=== PATIENT | female | born 1990 | race African-American/Black ===

== ENCOUNTER 2023-05-07 01:02 | Emergency (ER) | payer SELFPAY ==
--- OUTSIDE RECORDS SUMMARY | 2023-05-07 01:07 | XMS REPORT | Continuity of Care Document ---
:1990 Author Organization [facility] t Address [address] [place] [address] Care Team Providers Name Role Phone Arian Meraz CNM Attending Clinician Unavailable Lela Caro CNM Attending Clinician Unavailable Lela Caro CNM Admitting Clinician Unavailable Arian Meraz CNM Admitting Clinician Unavailable Payers Payer Name Policy Type Policy Number Effective Date Expiration Date S ource Problems This patient has no known problems. Allergies, Adverse Reactions, Alerts Allergy Allergy Status Severity Reaction(s) Onset Inactive Treating Comm ents Source Name Type Date Date Clinician No Known DA Active U 2019-0 [facility] 00:00: e 00 [facility] No Known DA Active U 2019-0 [facility] 00:00: e 00 [facility] No Known DA Active U 2015-0 [facility] 00:00: e 00 [facility] Medications This patient has no known medications. Procedures This patient has no known procedures. Encounters Start End Encounter Admission Attending Care Care Encounter Source Date/Time Date/Time Type Type Clinicians Facility Department ID 2020-01-11 Inpatient [facility] ELOISA [id number] [facility] 03:44:00 34 [facility] 2019-10-20 Inpatient [facility] ELOISA [id number] [facility] 08:07:00 89 [facility] 2022-11-12 2022-11-12 [facility] [id number] [facility] 13:44:00 13:44:00 Arian 48 [facility] 2020-11-05 2020-11-05 Outpatient [facility] [id number] [facility] 14:50:00 14:50:00 Lela 31 [facility] Results Test Description Test Time Test Comments Results Result Comments Source AB HEPATITIS C 2022-11-14 06:12:00 Test Item Value Reference Range Interpretation Comme nts AB HEPATITIS C (test Non Reactive Non Reactive HCV ant ibody alone does not code = HCVAB) differentiate betweenpreviously resolved infect ion and active infection.Equiv ocal and Reactive HCV antibody re sults should befollowed up w ith an HCV RNA test to support the diagnosisof active HCV infe ction.Performed At: [facility] [id number] Jameson Patel MD Ph:[phone] AB HIV 1 06:12:00 Test Item Value Reference Range Interpretation Comments AB HIV 1 2 (test Nonreactive NonReactive It is recog nized that code = [id number]) currently av ailable assays for thed etection of antibodies t o HIV-1 and/or HIV-2 ma y notdetect all i nfected individuals. A negative test result soriano snot exclude the pos sibility of exposure to or infection withH IV. HIV antibodies may be undetectable in some stages ofthe in fection and in some cli nical conditions. AG HEPAT B [id number] 22:14:00 Test Item Value Reference Range Interpretation Comments AG HEPAT B SURF (test code NonReactive Index Nonreactive = HBSAG) COMPREHENSIVE METABOLIC [id number] 21:18:00 Test Item Value Reference Range Interpretation Comments SODIUM (test code = 139 mmol/L 136-145 N NA) POTASSIUM (test 3.6 mmol/L 3.5-5.1 N code = K) CHLORIDE (test code 105.0 mmol/L 98-107 N = CL) CARBON DIOXIDE 23.0 mmol/L 21-32 N (test code = CO2) ANION GAP (test 14.6 10-20 N code = GAP) GLUCOSE (test code 54 mg/dL 74-106 L = GLU) BLOOD UREA NITROGEN 9 mg/dL 7-18 N (test code = BUN) GLOMERULAR > 60 mL/min See_Comment The Glomerular FILTRATION RATE Filtration R ate is a (test code = GFR) calculated parameterbased on serum Creatinin e, patient age and sex. GFR valuesless than 60 mL/min/1.73 squ are meters are imani cative ofChronic Kidne y Disease. Values less than 15 mL/min/1.73squa re meters indicate Kidney failure. The calculation for GFR is based on the CK D-EPI (2020) calculat ion. This formulais race indifferent and is the recommended for ingrid for GFRby the N ational Kidney Foundati on for Adults.The GFR will not calculate i f the sex is unknown or if thepatient's ag e is <18 years. [Aut omated message] The sy stem which generated this result transmit hira reference range : >=60. The reference r ashlee was not used to interpret this result as normal/abnor mal. CREATININE (test 0.70 mg/dL 0.55-1.02 N Note blue ge in code = CREAT) reference rang e due to change in reage nt. BUN/CREATININE 13.4 10-20 N RATIO (test code = BUN/CREA) TOTAL PROTEIN (test 7.4 gram/dL 6.4-8.2 N code = PROT) ALBUMIN (test code 3.8 g/dL 3.4-5.0 N = ALB) GLOBULIN (test code 3.6 gram/dL 2.7-4.2 N = GLOB) ALBUMIN/GLOBULIN 1.1 0.75-1.50 N RATIO (test code = A/G) CALCIUM (test code 8.4 mg/dL 8.5-10.1 L = CA) BILIRUBIN TOTAL 0.70 mg/dL 0.0-1.0 N (test code = BILT) SGOT/AST (test code 12 IUnit/L 15-37 L = AST) SGPT/ALT (test code 9 IUnit/L 12-78 L = ALT) ALKALINE 54 IUnit/L 45-117 N Note change i n PHOSPHATASE TOTAL reference range due to (test code = ALKP) change in reagent. AB [id number] 21:16:00 Test Item Value Reference Range Interpretation Comments AB TREPONEMA (test code = Negative Index NonReactive TREPAB) THYROID STIMULATING [id number] 21:02:00 Test Item Value Reference Range Interpretation Comments THYROID STIMULATING 1.860 uIU/mL 0.36-3.74 N TSH REFE RENCE HORMONE (test code = RANGES: EUTHYROID: TSH) 0.35 - 4.3 mIU/ mL HYPO : > 5.5 mI U/mL HYPER : < 0.35 mIU/mL [id number] 20:41:00 Test Item Value Reference Range Interpretation Comments GLYCOSYLATED HEMOGLOBIN 4.7 % HbA1 AZAR PIERRE DIAGNOSIS: (HA1C) (test code = HbA1C GLYHGB) (%) ----- ----- Diab etic >6.4Prediabetes 5.7 - 6.4Normal <5. 7 ESTIMATED AVERAGE 88 MG/DL GLUCOSE (test code = EAG) CBC W/AUTO [id number] 20:14:00 Test Item Value Reference Range Interpretation Comments WHITE BLOOD CELL (test code = 4.9 K/mm3 4.5-12.5 N WBC) RED BLOOD CELL (test code = 4.63 mill/mm3 3.7-5.2 N RBC) HEMOGLOBIN (test code = HGB) 12.8 gram/dL 11.5-15.5 N HEMATOCRIT (test code = HCT) 39.9 % 36.0-46.0 N MEAN CELL VOLUME (test code = 86.2 fL 80-98 N MCV) MEAN CELL HGB (test code = MCH) 27.6 picogram 27.0-33.0 N MEAN CELL HGB CONCETRATION 32.1 gram/dL 33.0-36.0 L (test code = MCHC) RED CELL DISTRIBUTION WIDTH 13.2 % 11.6-16.2 N (test code = RDW) RED CELL DISTRIBUTION WIDTH SD 41.0 fL 37.0-51.0 N (test code = RDW-SD) PLATELET COUNT (test code = 328 K/mm3 150-450 N PLT) MEAN PLATELET VOLUME (test code 9.8 fL 6.7-11.0 N = MPV) NEUTROPHIL % (test code = NT%) 51.9 % 39.0-69.0 N IMMATURE GRANULOCYTE % (test 0.2 % 0.0-5.0 N code = IG%) LYMPHOCYTE % (test code = LY%) 37.0 % 25.0-55.0 N MONOCYTE % (test code = MO%) 6.7 % 0.0-10.0 N EOSINOPHIL % (test code = EO%) 3.6 % 0.0-5.0 N BASOPHIL % (test code = BA%) 0.6 % 0.0-1.0 N NUCLEATED RBC % (test code = 0.0 % 0-0 N NRBC%) NEUTROPHIL # (test code = NT#) 2.56 K/mm3 1.8-7.7 N IMMATURE GRANULOCYTE # (test 0.01 x10 3/uL 0-0.03 N code = IG#) LYMPHOCYTE # (test code = LY#) 1.83 K/mm3 1.0-5.0 N MONOCYTE # (test code = MO#) 0.33 K/mm3 0-0.8 N EOSINOPHIL # (test code = EO#) 0.18 K/mm3 0.0-0.5 N BASOPHIL # (test code = BA#) 0.03 K/mm3 0.0-0.2 N NUCLEATED RBC # (test code = 0.00 K/mm3 0.0-0.1 N NRBC#) MANUAL DIFF REQUIRED (test code NO = MDIFF) PAP [id number] 15:07:00 Test Item Value Reference Range Interpretation Comments PAP SMEAR-CUSTOMER SERVICES MANAGER (test code = REPORT FAX SMEAR PAPSMEAR) SPECIMEN COMMENTS: AGE:30 PAP W/CT/NG/TV RFX TO HR HPV ASCCOMMENTS TO FORM SETTER/DRIVER: LCI TEST CODE:[id number] HEPATITIS [id number] 05:10:00 Test Item Value Reference Range Interpretation Comments AB HEPATITIS C (test <0.1 0.0-0.9 INFCE R esult Units: s/co code = HCVAB) ratio Negative : < 0.8 Indeterminate: 0.8 - 0.9 Positive: > 0.9 The CDC recommends that a positive HCV antibody re sult be followed up wit h a HCV Nucleic Acid Am plification test (250479).P erformed At: [facility] [address] [place], [place] [id number] Jameson Patel MD Ph:[phone] AG HEPAT B [id number] 23:25:00 Test Item Value Reference Range Interpretation Comments AG HEPAT B SURF (test code Nonreactive Index Nonreactive = HBSAG) HIV 1 2 COMBO AG/AB [id number] 23:25:00 Test Item Value Reference Range Interpretation Comments HIV 1 2 COMBO AB/AG NON NONREACTIVE NONREACTIVE H IV P24 AG/AB SCREEN REACTIVE ANTIGEN NONREAC TIVE (test code = NONREACTIVE HIV 1&2 [id number]) ANTIBODY NONREA CTIVE THE HIV-1 P24 T EST HELPS DISTINGUI SH ACUTE HIV-1INFECTIONF ROM ESTABLISHED HIV -1 INFECTION WHEN THE SPECIMEN ISPOSI TIVE FOR HIV-1 P24 A NTIGEN. HIV-1 P24 ANTIG EN IS HIGHEST IN THE FIRST FEW WEEKS AFTERINFECTION AG HEPAT B [id number] 23:23:00 Test Item Value Reference Range Interpretation Comments AG HEPAT B SURF (test code Nonreactive Index Nonreactive = HBSAG) HIV 1 2 COMBO AG/AB [id number] 23:23:00 Test Item Value Reference Range Interpretation Comments HIV 1 2 COMBO AG/AB SCREEN (test code = NONREACTIVE [id number]) AB [id number] 22:14:00 Test Item Value Reference Range Interpretation Comments AB TREPONEMA (test code = Nonreactive Index NonReactive TREPAB) URINALYSIS [id number] 07:27:00 Test Item Value Reference Range Interpretation Comments UA COLOR (test code = COLU) Light-Yellow YELLOW UA APPEARANCE (test code = CLEAR CLEAR APPU) UA GLUCOSE DIPSTICK (test NEGATIVE mg/dL NEGATIVE code = DGLUU) UA BILIRUBIN DIPSTICK (test NEGATIVE mg/dL NEGATIVE code = BILU) UA KETONE DIPSTICK (test code NEGATIVE mg/dL NEGATIVE = KETU) UA SPECIFIC GRAVITY (test 1.013 1.001-1.035 code = SGU) UA BLOOD DIPSTICK (test code Negative mg/dL NEGATIVE = ALY) UA PH DIPSTICK (test code = 8.0 5.0-8.0 BRENNAN) UA PROTEIN DIPSTICK (test NEGATIVE mg/dL NEGATIVE code = PROU) UA UROBILINIOGEN DIPSTICK Normal mg/dL NEGATIVE (test code = URO) UA NITRITE DIPSTICK (test NEGATIVE NEGATIVE code = AMINTA) UA LEUKOCYTE ESTERASE W NEGATIVE Ian/uL NEGATIVE REFLEX (test code = LEUUR) UA WBC (test code = WBCU) per HPF 0-5 UA RBC (test code = RBCU) per HPF 0-5 UA EPITHELIAL CELLS (test per HPF Few code = EPIU) UA BACTERIA (test code = per HPF NONE BACU) Urine Source? Clean CatchURINALYSIS [id number] 07:27:00 Test Item Value Reference Range Interpretation Comments UA COLOR (test code = COLU) Light-Yellow YELLOW UA APPEARANCE (test code = CLEAR CLEAR APPU) UA GLUCOSE DIPSTICK (test NEGATIVE mg/dL NEGATIVE code = DGLUU) UA BILIRUBIN DIPSTICK (test NEGATIVE mg/dL NEGATIVE code = BILU) UA KETONE DIPSTICK (test code NEGATIVE mg/dL NEGATIVE = KETU) UA SPECIFIC GRAVITY (test 1.013 1.001-1.035 code = SGU) UA BLOOD DIPSTICK (test code Negative mg/dL NEGATIVE = ALY) UA PH DIPSTICK (test code = 8.0 5.0-8.0 BRENNAN) UA PROTEIN DIPSTICK (test NEGATIVE mg/dL NEGATIVE code = PROU) UA UROBILINIOGEN DIPSTICK Normal mg/dL NEGATIVE (test code = URO) UA NITRITE DIPSTICK (test NEGATIVE NEGATIVE code = AMINTA) UA LEUKOCYTE ESTERASE W NEGATIVE Ian/uL NEGATIVE REFLEX (test code = LEUUR) UA WBC (test code = WBCU) 0-5 per HPF 0-5 UA RBC (test code = RBCU) 0-2 #/HPF 0-5 UA EPITHELIAL CELLS (test FEW per HPF FEW code = EPIU) UA BACTERIA (test code = NONE SEEN #/HPF NONE BACU) Urine Source? Clean CatchCBC W/O [id number] 06:45:00 Test Item Value Reference Range Interpretation Comments WHITE BLOOD CELL (test code = 5.9 K/mm3 4.5-12.5 N WBC) RED BLOOD CELL (test code = 4.53 mill/mm3 3.7-5.2 N RBC) HEMOGLOBIN (test code = HGB) 12.4 gram/dL 11.5-15.5 N HEMATOCRIT (test code = HCT) 38.2 % 36.0-46.0 N MEAN CELL VOLUME (test code = 84.3 fL 80-98 N MCV) MEAN CELL HGB (test code = MCH) 27.4 picogram 27.0-33.0 N MEAN CELL HGB CONCETRATION 32.5 gram/dL 33.0-36.0 L (test code = MCHC) RED CELL DISTRIBUTION WIDTH 13.2 % 11.6-16.2 N (test code = RDW) PLATELET COUNT (test code = 239 K/mm3 150-450 N PLT) MEAN PLATELET VOLUME (test code 10.4 fL 6.7-11.0 N = MPV) - CT ABD PELVIS [id number] 05:57:00 Name: ARACELI CARO [facility] : 1990 Age/S: 29 / F [address] [facility] Unit #: [id number] Loc: [place] [address] Phys: Iván Doherty DO Acct: [id number] Dis Date: Status: REG ER PHONE #: [phone] Exam Date: 01/11/2020 0540 FAX #: [phone] Reason: RLQ/LLQ pain EXAMS: CPT CODE: [id number] CT ABD PELVIS W/CONT 44884 EXAM: - CT ABD PELVIS W/CONT HISTORY: Abdominal pain. TECHNIQUE: Axial tomograms through the abdomen and pelvis were obtained after intravenous contrast. Coronal and sagittal reformatted images are provided. This exam was performed according to our departmental dose-optimization program, which includes automated exposure control, adjustment of the mA and/or kV according to patient size and/or use of iterative reconstruction technique. COMPARISON: None available time of interpretation. FINDINGS: The visualized lung bases are clear. The liver, spleen, pancreas,adrenal glands and kidneys demonstrate no significant abnormalities. The appendix has a normal appearance. The bowel is unremarkable. There is no adenopathy or fluid collection. No acute osseous abnormality. IMPRESSION: No significant abnormalities demonstrated. at 0557 Reported and signed by: Alfa Castro MD CC: Iván Doherty DO; Lela Caro Technologist:CHRIS ORTEGA CTDI: DLP: Trnscb Date/Time: 01/11/2020 (0557) [email or web address] Orig Print D/T: S: 01/11/2020 (0600) PAGE 1 Signed Report- DUP AB/PEL/SC [id number] 05:55:00 Name: ARACELI CARO [facility] : 1990 Age/S: 29 / F [address] Unit #: [id number] Loc: [place] [address] Phys: Iván Doherty DO Acct: [id number] Dis Date: Status: REG ER PHONE #: [phone] Exam Date: 01/11/2020514 FAX #: [phone] Reason: RLQ/LLQ pain EXAMS: CPT CODE: [id number] DUP AB/PEL/SC COMP 88898 EXAM: - US TRANSVAGINAL NON OB, - US PELVIS LTD OR FU, - DUP AB/PEL/SC COMP HISTORY: Pain. COMPARISON: None TECHNIQUE: Transabdominal and endovaginal scans were performed. Spectral Doppler and color Doppler sonographic analysis of the adnexa was performed. FINDINGS: The uterus is normal size, measuring 8.8 x 5 x 4.4cm (length x AP x transverse dimensions). Endometrial stripe is measuring 12 mm in AP thickness. No myometrial masses are seen. There is no evidence of intrauterine . The right ovary measures 3.2 x 1.5 x 2.6cm. The left ovary measures 3.9 x 2.4 x 3.2cm. Bilateral ovarian blood flow is documented by pulse wave Doppler. There is minimal free fluid in the cul-de-sac. IMPRESSION: Unremarkable pelvic ultrasound. Left ovary is minimally larger in size compared to right ovary. No significant cystic lesions are noted. Electronically Signedby Alfa Castro MD on 01/11/2020 at 0555 Reported and signed by: Alfa Castro MD CC: Iván Doherty DO; Lela Caro Technologist: ARACELI COLIN RT(R),RDMS Trnscb Date/Time: 01/11/2020 (554) [email or web address] Orig Print D/T: S: 01/11/2020 (4857) Probe: PAGE 1 Signed Report- US PELVIS LTD OR [id number] 05:55:00 Name: ARACELI CARO [facility] : 1990 Age/S: 29 / F [address] [facility] Unit #: [id number] Loc: [place], [place] [address] Phys: Iván Doherty DO Acct: [id number] Dis Date: Status: REG ER KOLBY NE #: [phone] Exam Date: 01/11/2020514 FAX #: [phone] Reason: RLQ/LLQ pain EXAMS: CPT CODE: [id number] [place] [address] EXAM: - US TRANSVAGINAL NON OB, - US PELVIS LTD OR FU, - DUP AB/PEL/SC COMP HISTORY: Pain. COMPARISON: None TECHNIQUE: Transabdominal and endovaginal scans were performed. Spectral Doppler and color Doppler sonographic analysis of the adnexa was performed. FINDINGS: The uterus is normal size, measuring 8.8 x 5 x 4.4cm (length x AP x transverse dimensions). Endometrial stripe is measuring 12 mm in AP thickness. No myometrial masses are seen. There is no evidenceof intrauterine . The right ovary measures 3.2 x 1.5 x 2.6cm. The left ovary measures 3.9 x2.4 x 3.2cm. Bilateral ovarian blood flow is documented by pulse wave Doppler. There is minimal freefluid in the cul-de-sac. IMPRESSION: Unremarkable pelvic ultrasound. Left ovary is minimally largerin size compared to right ovary. No significant cystic lesions are noted. at 0555 Reported and signed by: Alfa Castro MD CC: Song Doherty DO; Lela Caro Technologist: ARACELI COLIN RT(R),RDMS Trnscb Date/Time: 01/11/2020 (554) [email or web address] Orig Print D/T: S: 01/11/2020 (0522) Probe: PAGE 1 Signed Report- US TRANSVAGINAL NON [id number] 05:55:00 Name: ARACELI CARO [facility] : 1990 Age/S: 29 / F [address] Unit #: [id number] Loc: [place] [address] Phys: Iván Doherty DO Acct: [id number] Dis Date: Status: REG ER PH ONE #: [phone] Exam Date: 01/11/2020536 FAX #: [phone] Reason: RLQ/LLQ pain EXAMS: CPT CODE: [id number] [place] [address] EXAM: - US TRANSVAGINAL NON OB, - US PELVIS LTD OR FU, - DUP AB/PEL/SC COMP HISTORY: Pain. COMPARISON: None TECHNIQUE: Transabdominal and endovaginal scanswere performed. Spectral Doppler and color Doppler sonographic analysis of the adnexa was performed.FINDINGS: The uterus is normal size, measuring 8.8 x 5 x 4.4cm (length x AP x transverse dimensions). Endometrial stripe is measuring 12 mm in AP thickness. No myometrial masses are seen. There is no evidence of intrauterine . The right ovary measures 3.2 x 1.5 x 2.6cm. The left ovary measures 3.9 x 2.4 x 3.2cm. Bilateral ovarian blood flow is documented by pulse wave Doppler. There is minimal free fluid in the cul-de-sac. IMPRESSION: Unremarkable pelvic ultrasound. Left ovary is minimally larger in size compared to right ovary. No significant cystic lesions are noted. at 0555 Reported and signed by: Alfa Castro MD CC: Iván Doherty DO; Lela Caro Technologist: ARACELI COLIN RT(R),RDMS Trnnhb Date/Time: 01/11/2020(05) [email or web address] Orig Print D/T: S: 01/11/2020 (0558) Probe: [id number] PAGE 1 Signed ReportBASIC METABOLIC [id number] 05:30:00 Test Item Value Reference Range Interpretation Comments SODIUM (test code = 140 mmol/L 136-145 N NA) POTASSIUM (test code 3.7 mmol/L 3.5-5.1 N = K) CHLORIDE (test code = 106.0 mmol/L 98-107 N CL) CARBON DIOXIDE (test 27.0 mmol/L 21-32 N code = CO2) ANION GAP (test code 10.7 10-20 N = GAP) GLUCOSE (test code = 82 mg/dL 74-106 N GLU) BLOOD UREA NITROGEN 16 mg/dL 7-18 N (test code = BUN) GLOMERULAR FILTRATION > 60 mL/min >=60 Estima hira GFR by RATE (test code = using Kimberlee fied MDRD GFR) formula.Chronic kidney disease is defined as ei er kidney damageor GFR <60 mL/min/1.73 m2 for >3 months. CREATININE (test code 0.70 mg/dL 0.55-1.02 N Note change in = CREAT) reference range due to change in reagent. BUN/CREATININE RATIO 22.9 10-20 H (test code = BUN/CREA) CALCIUM (test code = 9.1 mg/dL 8.5-10.1 N CA) HEPATIC FUNCTION [id number] 05:30:00 Test Item Value Reference Range Interpretation Comments TOTAL PROTEIN (test 8.2 gram/dL 6.4-8.2 N code = PROT) ALBUMIN (test code = 3.8 g/dL 3.4-5.0 N ALB) GLOBULIN (test code = 4.4 gram/dL 2.7-4.2 H GLOB) ALBUMIN/GLOBULIN RATIO 0.9 0.75-1.50 N (test code = A/G) BILIRUBIN TOTAL (test 0.20 mg/dL 0.0-1.0 N code = BILT) BILIRUBIN DIRECT (test 0.06 mg/dL 0.0-0.20 N code = BILD) SGOT/AST (test code = 11 IUnit/L 15-37 L AST) SGPT/ALT (test code = 19 IUnit/L 12-78 N ALT) ALKALINE PHOSPHATASE 50 IUnit/L 45-117 N Note change in TOTAL (test code = reference range due ALKP) to change in reagent. [id number] 05:30:00 Test Item Value Reference Range Interpretation Comments LIPASE (test code = LIP) 125 U/L 73.0-393.0 N HCG SERUM [id number] 05:30:00 Test Item Value Reference Range Interpretation Comments HCG SERUM QUAL (test NEGATIVE NEGATIVE This HC GQL test is NOT code = HCGQL) applicable for MALE patients.Check with nurse about probable order error.If Tumor Marker Test needed, nu rse should order test "HCG TU"(Test #[id number])---- - BASIC METABOLIC [id number] 05:29:00 Test Item Value Reference Range Interpretation Comments SODIUM (test code = 140 mmol/L 136-145 N NA) POTASSIUM (test code 3.7 mmol/L 3.5-5.1 N = K) CHLORIDE (test code = 106.0 mmol/L 98-107 N CL) CARBON DIOXIDE (test 27.0 mmol/L 21-32 N code = CO2) ANION GAP (test code 10.7 10-20 N = GAP) GLUCOSE (test code = 82 mg/dL 74-106 N GLU) BLOOD UREA NITROGEN 16 mg/dL 7-18 N (test code = BUN) GLOMERULAR FILTRATION > 60 mL/min >=60 Estima hira GFR by RATE (test code = using Kimberlee fied MDRD GFR) formula.Chronic kidney disease is defined as [facility] er kidney damageor GFR <60 mL/min/1.73 m2 for >3 months. CREATININE (test code 0.70 mg/dL 0.55-1.02 N Note change in = CREAT) reference range due to change in reagent. BUN/CREATININE RATIO 22.9 10-20 H (test code = BUN/CREA) CALCIUM (test code = 9.1 mg/dL 8.5-10.1 N CA) HEPATIC FUNCTION [id number] 05:29:00 Test Item Value Reference Range Interpretation Comments TOTAL PROTEIN (test 8.2 gram/dL 6.4-8.2 N code = PROT) ALBUMIN (test code = 3.8 g/dL 3.4-5.0 N ALB) GLOBULIN (test code = 4.4 gram/dL 2.7-4.2 H GLOB) ALBUMIN/GLOBULIN RATIO 0.9 0.75-1.50 N (test code = A/G) BILIRUBIN TOTAL (test 0.20 mg/dL 0.0-1.0 N code = BILT) BILIRUBIN DIRECT (test 0.06 mg/dL 0.0-0.20 N code = BILD) SGOT/AST (test code = 11 IUnit/L 15-37 L AST) SGPT/ALT (test code = 19 IUnit/L 12-78 N ALT) ALKALINE PHOSPHATASE 50 IUnit/L 45-117 N Note change in TOTAL (test code = reference range due ALKP) to change in reagent. [id number] 05:29:00 Test Item Value Reference Range Interpretation Comments LIPASE (test code = LIP) 125 U/L 73.0-393.0 N HCG SERUM [id number] 05:29:00 Test Item Value Reference Range Interpretation Comments HCG SERUM QUAL (test code = HCGQL) NEGATIVE BASIC METABOLIC [id number] 05:17:00 Test Item Value Reference Range Interpretation Comments SODIUM (test code = NA) 140 mmol/L 136-145 N POTASSIUM (test code = K) 3.7 mmol/L 3.5-5.1 N CHLORIDE (test code = CL) 106.0 mmol/L 98-107 N CARBON DIOXIDE (test code = CO2) mmol/L 21-32 ANION GAP (test code = GAP) 10-20 GLUCOSE (test code = GLU) mg/dL 74-106 BLOOD UREA NITROGEN (test code = mg/dL 7-18 BUN) GLOMERULAR FILTRATION RATE (test mL/min >=60 code = GFR) CREATININE (test code = CREAT) mg/dL 0.55-1.02 BUN/CREATININE RATIO (test code 10-20 = BUN/CREA) CALCIUM (test code = CA) mg/dL 8.5-10.1 HEPATIC FUNCTION [id number] 05:17:00 Test Item Value Reference Range Interpretation Comments TOTAL PROTEIN (test code = PROT) gram/dL 6.4-8.2 ALBUMIN (test code = ALB) g/dL 3.4-5.0 GLOBULIN (test code = GLOB) gram/dL 2.7-4.2 ALBUMIN/GLOBULIN RATIO (test code = 0.75-1.50 A/G) BILIRUBIN TOTAL (test code = BILT) mg/dL 0.0-1.0 BILIRUBIN DIRECT (test code = BILD) mg/dL 0.0-0.20 SGOT/AST (test code = AST) IUnit/L 15-37 SGPT/ALT (test code = ALT) IUnit/L 12-78 ALKALINE PHOSPHATASE TOTAL (test IUnit/L 45-117 code = ALKP) [id number] 05:17:00 Test Item Value Reference Range Interpretation Comments LIPASE (test code = LIP) U/L 73.0-393.0 HCG SERUM [id number] 05:17:00 Test Item Value Reference Range Interpretation Comments HCG SERUM QUAL (test code = HCGQL) NEGATIVE [id number] 02:37:00 Test Item Value Reference Range Interpretation Comments TROPONIN-I (test code = TROPI) <0.015 ng/mL 0-0.045 N COMMENTS TO FORM SETTER/DRIVER: COLLECT 3 HOURS AFTER PREVIOUS SAMPLETROPONIN-I 2019-10-20 18:55:00 Test Item Value Reference Range Interpretation Comments TROPONIN-I (test code = TROPI) <0.015 ng/mL 0-0.045 N COMMENTS TO FORM SETTER/DRIVER: COLLECT 3 HOURS AFTER PREVIOUS SAMPLETHYROID PROFILE [id number] 15:27:00 Test Item Value Reference Range Interpretation Comments T3 UPTAKE (test code = 34.0 % 30.0-40.0 N T3UP) T4 (THYROXINE) (test 11.0 ug/dL 4.5-13.9 N code = T4) T7 (FREE THYROXINE 3.74 FTI 1.3-5.1 N INDEX) (test code = T7) THYROID STIMULATING 1.940 uIU/mL 0.36-3.74 N TSH REFE RENCE HORMONE (test code = RANGES: EUTHYROID: TSH) 0.35 - 4.3 mIU/ mL HYPO : > 5.5 mI U/mL HYPER : < 0.35 mIU/mL [id number] 13:44:00 Test Item Value Reference Range Interpretation Comments GLYCOSYLATED HEMOGLOBIN 5.2 % HbA1 SUGG ESTED DIAGNOSIS: (HA1C) (test code = HbA1C GLYHGB) (%) ----- ----- Diab etic >6.4Prediabetes 5.7 - 6.4Normal <5. 7 ESTIMATED AVERAGE 103 MG/DL GLUCOSE (test code = EAG) THYROID STIMULATING [id number] 09:59:00 Test Item Value Reference Range Interpretation Comments THYROID STIMULATING 2.080 uIU/mL 0.36-3.74 N TSH REFE RENCE HORMONE (test code = RANGES: EUTHYROID: TSH) 0.35 - 4.3 mIU/ mL HYPO : > 5.5 mI U/mL HYPER : < 0.35 mIU/mL BASIC METABOLIC [id number] 09:52:00 Test Item Value Reference Range Interpretation Comments SODIUM (test code = 143 mmol/L 136-145 N NA) POTASSIUM (test code 3.5 mmol/L 3.5-5.1 N = K) CHLORIDE (test code = 109.0 mmol/L 98-107 H CL) CARBON DIOXIDE (test 27.0 mmol/L 21-32 N code = CO2) ANION GAP (test code 10.5 10-20 N = GAP) GLUCOSE (test code = 88 mg/dL 74-106 N GLU) BLOOD UREA NITROGEN 14 mg/dL 7-18 N (test code = BUN) GLOMERULAR FILTRATION > 60 mL/min >=60 Estima hira GFR by RATE (test code = using Kimberlee fied MDRD GFR) formula.Chronic kidney disease is defined as [facility] er kidney damageor GFR <60 mL/min/1.73 m2 for >3 months. CREATININE (test code 0.90 mg/dL 0.55-1.02 N Note change in = CREAT) reference range due to change in reagent. BUN/CREATININE RATIO 15.6 10-20 N (test code = BUN/CREA) CALCIUM (test code = 9.2 mg/dL 8.5-10.1 N CA) [id number] 09:52:00 Test Item Value Reference Range Interpretation Comments TROPONIN-I (test code = TROPI) <0.015 ng/mL 0-0.045 N [id number] 09:48:00 Test Item Value Reference Range Interpretation Comments D-DIMER (test 217.00 ng/mLFEU 0-500 N Clinical Cu t-off value code = DDIMER) for D-Dimer i s 500 ng/mL FEU. Comment: T he [employer] D-Dim er assay is intended for use asan aid in the diag nosis of venous thromboe mbolism (VTE)[deep vein thrombosis (DVT ) or pulmonary embol ism (PE)].The measu rement of D-Dimer should not be used as an aid inthe diagnosis of VT E, in patient with: -Therapeutic do se anticoagulant t herapy for >24 hours -Fibr inolytic therapy within previous 7 days -Trauma or surgery within previous 4 weeks -Disseminated malignancies -A ortic aneurysm -Sepsi s, severe infections, pne umonia, severe skin inf ections -Liver cirrhosi s - [id number] 09:48:00 Test Item Value Reference Range Interpretation Comments PHOSPHORUS (test code = PHOS) 2.2 mg/dL 2.5-4.9 L [id number] 09:48:00 Test Item Value Reference Range Interpretation Comments MAGNESIUM (test code = MAG) 1.9 mg/dL 1.8-2.4 N BASIC METABOLIC [id number] 09:43:00 Test Item Value Reference Range Interpretation Comments SODIUM (test code = NA) 143 mmol/L 136-145 N POTASSIUM (test code = K) 3.5 mmol/L 3.5-5.1 N CHLORIDE (test code = CL) 109.0 mmol/L 98-107 H CARBON DIOXIDE (test code = CO2) mmol/L 21-32 ANION GAP (test code = GAP) 10-20 GLUCOSE (test code = GLU) mg/dL 74-106 BLOOD UREA NITROGEN (test code = mg/dL 7-18 BUN) GLOMERULAR FILTRATION RATE (test mL/min >=60 code = GFR) CREATININE (test code = CREAT) mg/dL 0.55-1.02 BUN/CREATININE RATIO (test code 10-20 = BUN/CREA) CALCIUM (test code = CA) mg/dL 8.5-10.1 [id number] 09:43:00 Test Item Value Reference Range Interpretation Comments TROPONIN-I (test code = TROPI) ng/mL 0-0.045 [id number] 09:43:00 Test Item Value Reference Range Interpretation Comments PHOSPHORUS (test code = PHOS) mg/dL 2.5-4.9 [id number] 09:43:00 Test Item Value Reference Range Interpretation Comments MAGNESIUM (test code = MAG) 1.9 mg/dL 1.8-2.4 N - XR CHEST 1 [id number] 09:41:00 FAX: Loni Page DO Emily: B St: REG FAX: Y Lela Caro Name: ARACELI CARO [facility] : 1990 Age/S: 29/F [address] [facility] Unit #: [id number] Loc: [place] [address] Phys: Loni Page DO Acct: [id number] Dis Date: Status: REG ER PHONE #: [phone] Exam Date: 10/20/2019 0929FAX #: [phone] Reason: Abdominal Pain EXAMS: CPT CODE: [id number] XR CHEST 1 V 90301 HISTORY: Abdominal pain. COMPARISON: None available. Location: [facility]. No acute infiltrates, effusion or congestion is noted. The cardiac and mediastinal silhouette are within normal limits. IMPRESSION: No acute infiltrates, effusion or congestion. at 0941 Reported and signed by: Zuhair Jc M.D. CC: Loni Page DO; Lela Caro Technologist: BHAVANI ARELLANO JR Trnscrd Date/Time/By: 10/20/2019 (0941) : By: [email or web address] Orig Print D/T: S: 10/20/2019 (2197) PAGE 1 Signed Report PROTHROMBIN [id number] 09:33:00 Test Item Value Reference Range Interpretation Comments PROTHROMBIN TIME 13.1 seconds 9.0-14.0 N PATIENT (test code = PTP) INTERNATIONAL NORMAL 1.1 0.8-1.2 N The the rapeutic range RATIO (test code = for oral INR) anticoagulant t herapy formost indicat ions is an internati onal normalized rati o (INR)of between 2.0 and 3.0. The recommended therapeutic INR range for various cli nical situations is l isted below: Clinical Situat ion INR range Pulmonary embol ism treatment (2.0-3.0)Venous thrombosis treatmentVenous thrombosis prophylaxis (hi gh risk surgery)Prevent ion of systemic emboli sm from: Acute myocardial infa rction Valvular heart disease Atrial fibrillation Mechanical pros thetic heart valves (2.5-3.5) IS PATIENT ON ANTICOAGULANTS? NTHROMBOPLASTIN TIME [id number] 09:33:00 Test Item Value Reference Range Interpretation Comments THROMBOPLASTIN TIME PARTIAL 35.9 seconds 25.0-36.5 N (test code = PTT) IS PATIENT ON ANTICOAGULANTS? NCBC W/O [id number] 09:22:00 Test Item Value Reference Range Interpretation Comments WHITE BLOOD CELL (test code = 3.1 K/mm3 4.5-12.5 L WBC) RED BLOOD CELL (test code = 5.57 mill/mm3 3.7-5.2 H RBC) HEMOGLOBIN (test code = HGB) 15.5 gram/dL 11.5-15.5 N HEMATOCRIT (test code = HCT) 47.1 % 36.0-46.0 H MEAN CELL VOLUME (test code = 84.6 fL 80-98 N MCV) MEAN CELL HGB (test code = MCH) 27.8 picogram 27.0-33.0 N MEAN CELL HGB CONCETRATION 32.9 gram/dL 33.0-36.0 L (test code = MCHC) RED CELL DISTRIBUTION WIDTH 13.1 % 11.6-16.2 N (test code = RDW) PLATELET COUNT (test code = 249 K/mm3 150-450 N PLT) MEAN PLATELET VOLUME (test code 9.8 fL 6.7-11.0 N = MPV) PAP [id number] 09:27:00 Test Item Value Reference Range Interpretation Comments PAP SMEAR-CUSTOMER SERVICES MANAGER (test code = REPORT FAX SMEAR PAPSMEAR) SPECIMEN COMMENTS: AGE:[address]/NG/TV RFX TO HR HPV ASCUCOMMENTS TO FORM SETTER/DRIVER: LCI TEST CODE:[id number] HEPATITIS [id number] 08:10:00 Test Item Value Reference Range Interpretation Comments AB HEPATITIS C (test 0.1 0.0-0.9 INFCE R esult Units: s/co code = HCVAB) ratio Negative : < 0.8 Indeterminate: 0.8 - 0.9 Positive: > 0.9 The CDC recommends that a positive HCV antibody re sult be followed up wit h a HCV Nucleic Acid Am plification test ([id number]).P erformed At: [facility] [id number] [place], [place] [address]Thuod Jameson Patel MD Ph:[phone] AG HEPAT B [id number] 23:27:00 Test Item Value Reference Range Interpretation Comments AG HEPAT B SURF (test code Nonreactive Index Nonreactive = HBSAG) HIV 1 2 COMBO AG/AB [id number] 23:27:00 Test Item Value Reference Range Interpretation Comments HIV 1 2 COMBO AB/AG NON NONREACTIVE NONREACTIVE H IV P24 AG/AB SCREEN REACTIVE ANTIGEN NONREAC TIVE (test code = NONREACTIVE HIV 1&2 [id number]) ANTIBODY NONREA CTIVE THE HIV-1 P24 T EST HELPS DISTINGUI SH ACUTE HIV-1INFECTIONF ROM ESTABLISHED HIV -1 INFECTION WHEN THE SPECIMEN ISPOSI TIVE FOR HIV-1 P24 A NTIGEN. HIV-1 P24 ANTIG EN IS HIGHEST IN THE FIRST FEW WEEKS AFTERINFECTION AG HEPAT B [id number] 22:53:00 Test Item Value Reference Range Interpretation Comments AG HEPAT B SURF (test code Nonreactive Index Nonreactive = HBSAG) HIV 1 2 COMBO AG/AB [id number] 22:53:00 Test Item Value Reference Range Interpretation Comments HIV 1 2 COMBO AG/AB SCREEN (test code = NONREACTIVE [id number]) AB [id number] 20:59:00 Test Item Value Reference Range Interpretation Comments AB TREPONEMA (test code = Nonreactive Index NonReactive TREPAB) [id number] 20:25:00 Test Item Value Reference Range Interpretation Comments GLYCOSYLATED HEMOGLOBIN 5.3 % HbA1 SUGG ESTED DIAGNOSIS: (HA1C) (test code = HbA1C GLYHGB) (%) ----- ----- Diab etic >6.4Prediabetes 5.7 - 6.4Normal <5. 7 ESTIMATED AVERAGE 105 MG/DL GLUCOSE (test code = EAG) Notes Date/Time Note Provider Source 2020-01-11 04:47:00-00:00 [facility] ([facility]) EMERGENCY PROVIDER REPORT REPORT#:[id number] REPORT STATUS: Signed DATE:01/11/20 TIME: 446 PATIENT: ARACELI CARO UNIT #: [id number] ROOM/BED: AGE: 29 SEX: F PCP PHYS: Lela Caro CN SERVICE AUTHOR: Iván Doherty DO * ALL edits or amendments must be made on the Interneer/computer document * HPI-Abd Pain F Under 40 General Confirmed Patient Yes Initial Greet Date/Time 01/11/20 0401 Presentation Chief Complaint Abdominal pain Hx Obtained From Patient Sudden in Onset? No Onset Occurred Days ago Symptom Duration Since onset Progression since Onset Unchanged Caused by No trauma by history Location RLQ, LLQ Quality Painful Radiation Back. Migration/Movement None Severity: Onset Moderate Severity: Current Mild Associated with Denies: Anorexia, Back pain, Chest pain, Chills, Constipation, Diarrhea, Dysuria , Fever, Hematemesis, Hematochezia, Hematuria, M melina, Nausea, Shortness of breath, Urinary frequency, Urinary retention, Ur inary tract symptoms, Vaginal bleeding, Vaginal discharge, Vomiting. Exacerbated by Palpation Relieved by Nothing Free Text HPI Notes Free Text HPI Notes The patient is a 29-year-old female chief complaint of right lower quadrant and left lower quadrant abdominal pain. States that started days without settings or trauma and has been persistent and un changed since began. Pain described as painful and cramping. Worsened with palpation. I t radiates to her lower back on the right side. No relieving factors. No jenae tional complaints including change in bladder bowel function habit, vaginal bleeding or discharge, nausea, vomiting, fever, chills, sweats. Risk-Abd Pain F Under 40 )( Ectopic Risk factors reviewed Review of Systems ROS Statements Complete sys rev neg except as marked. Focused Review of Systems Constitutional Denies: Chills, Fever, Lethargy. Respiratory Denies: Cough, non-productive, Cough, productive , Shortness of breath. Cardiovascular Denies: Chest pain, Syncope. GI Reports: Abdominal pain. Denies: Constipation, D iarrhea, Nausea, Vomiting. Female Denies: Dysuria, Flank pain, Pelvic pain. Musculoskeletal Denies: Back pain, Extremity pain. Past Medical History - Adult Stated Complaint ABDOMINAL PAIN Allergies Coded Allergies: No Known Allergies (01/11/20) Home Medications Active Scripts METOPROLOL SUCC XL (TOPROL XL) 25 MG PO DAILY 30 Days #30 TAB Ref 3 Prov: 10/21/19 ASPIRIN 324 MG PO DAILY 30 Days #30 TAB Ref 3 Prov: 10/21/19 ESCITALOPRAM (LEXAPRO) 20 MG PO DAILY 30 Days #30 TABS Ref 3 Prov: 10/21/19 Additional Medical History anxiety, arrhythmia Past Surgical History: Reports: Bilateral tubal ligation. Family History: Reports: Depression/mood disorder. Alcohol Use Denies EtOH use Drug Use Denies recreational drugs Smoking status for patients 13 years old or olde r: Never Smoker Other Social History Local resident, Good social support Physical Exam Vital Signs Vital Signs First Documented: Result Date Time Pulse Ox 100 01/10 347 B/P 128/87 01/10 347 B/P Mean 100 01/10 347 O2 Delivery Room air 01/10 347 Temp 36.8 01/10 347 Pulse 78 01/10 347 Resp 01/10 Last Documented: Result Date Time Pulse Ox 98 01/10 635 B/P 123/81 01/10 635 B/P Mean 95 01/10 635 Temp 37.0 01/10 635 Pulse 58 01/10 635 Resp 16 05/07 0635 O2 Delivery Room air 01/10 0347 Review of Vital Signs Reviewed Focused PE General/Const General/Const Awake, Alert, Well appearing MS Head Head Normocephalic Eyes Eyes PERRL Ears/Nose/Throat Ears/Nose/Throat Airway patent, Mucous membrane s moist, Pharynx NL Resp/Chest Respiratory/Chest Breath sounds NL, Breath soun ds = bilat, No respiratory distress, No rales, No rhonchi, No wheezing Cardiovascular Cardiovascular Heart rate NL, Regular rhythm, H eart sounds NL, Peripheral circulation NL Abdomen/GI Abdomen/GI Soft, McBurney's non-tender, No guar ding, No rebound, BS normoactive, No distention, No hernia, No palpab le mass Tenderness/Guarding/Rebound Tender RLQ, Tender LLQ. Negative: Tender RUQ, T nicole LUQ, Tender suprapubic, Tender diffuse, Tender flank R, Tender flank L, Regan's sign positive, Guarding voluntary, Guarding involuntary, Rebound localiz ed, Rebound diffuse, Rigid to palpation. MS Back Back Inspection NL, Non-tender, No CVA tenderne ss Skin Skin Color NL, Warm, Dry, Turgor NL Neurologic Neurologic Oriented X3, Speech NL, No motor def icits, No sensory deficits Interpretation Diagnostics Lab Results Interpretation Results Laboratory Tests 01/11/205: [Embedded Image Not Available] Laboratory Tests: 01/10 0350 Chemistry Sodium (136 - 145 mmol/L) 140 Potassium (3.5 - 5.1 mmol/L) 3.7 Chloride (98 - 107 mmol/L) 106.0 Carbon Dioxide (21 - 32 mmol/L) 27.0 Anion Gap (10 - 20) 10.7 BUN (7 - 18 mg/dL) 16 Creatinine (0.55 - 1.02 mg/dL) 0.70 Glomerular Filtr Rate (>=60 mL/min) > 60 BUN/Creatinine Ratio (10 - 20) 22.9 H Glucose (74 - 106 mg/dL) 82 Calcium (8.5 - 10.1 mg/dL) 9.1 Total Bilirubin (0.0 - 1.0 mg/dL) 0.20 Direct Bilirubin (0.0 - 0.20 mg/dL) 0.06 AST (15 - 37 IUnit/L) 11 L ALT (12 - 78 IUnit/L) 19 Total Alk Phosphatase (45 - 117 IUnit/L) 50 Total Protein (6.4 - 8.2 gram/dL) 8.2 Albumin (3.4 - 5.0 g/dL) 3.8 Globulin (2.7 - 4.2 gram/dL) 4.4 H Albumin/Globulin Ratio (0.75 - 1.50) 0.9 Lipase (73.0 - 393.0 U/L) 125 Serum , Qual (NEGATIVE) NEGATIVE Hematology WBC (4.5 - 12.5 K/mm3) 5.9 RBC (3.7 - 5.2 mill/mm3) 4.53 Hgb (11.5 - 15.5 gram/dL) 12.4 Hct (36.0 - 46.0 %) 38.2 MCV (80 - 98 fL) 84.3 MCH (27.0 - 33.0 picogram) 27.4 MCHC (33.0 - 36.0 gram/dL) 32.5 L RDW (11.6 - 16.2 %) 13.2 Plt Count (150 - 450 K/mm3) 239 MPV (6.7 - 11.0 fL) 10.4 Urines Urine Color (YELLOW) Light-Yellow Urine Appearance (CLEAR) CLEAR Urine pH (5.0 - 8.0) 8.0 Ur Specific Imbler (1.001 - 1.035) 1.013 Urine Protein (NEGATIVE mg/dL) NEGATIVE Urine Glucose (UA) (NEGATIVE mg/dL) NEGATIVE Urine Ketones (NEGATIVE mg/dL) NEGATIVE Urine Blood (NEGATIVE mg/dL) Negative Urine Nitrite (NEGATIVE) NEGATIVE Urine Bilirubin (NEGATIVE mg/dL) NEGATIVE Urine Urobilinogen (NEGATIVE mg/dL) Normal Ur Leukocyte Esterase (NEGATIVE Ian/uL) NEGATIV E Urine RBC (0 - 5 #/HPF) 0-2 Urine WBC (0 - 5 per HPF) 0-5 Ur Epithelial Cells (FEW per HPF) FEW Urine Bacteria (NONE #/HPF) NONE SEEN Recent Impressions: ULTRASOUND - US PELVIS LTD OR FU 01/10 5494 Report Impression - Status: SIGNED Entered: 01/11/2020 5094 IMPRESSION: Unremarkable pelvic ultrasound. Left ovary is minimally larger in size compared to right ovary. No significant cystic lesions are noted. Impression By: Alfa Headley MD ULTRASOUND - DUP AB/PEL/SC COMP 01/10 0455 Report Impression - Status: SIGNED Entered: 01/11/2020557 IMPRESSION: Unremarkable pelvic ultrasound. Left ovary is minimally larger in size compared to right ovary. No significant cystic lesions are noted. Impression By: Alfa Headley MD ULTRASOUND - US TRANSVAGINAL NON OB 01/10 0515 Report Impression - Status: SIGNED Entered: 01/11/2020557 IMPRESSION: Unremarkable pelvic ultrasound. Left ovary is minimally larger in size compared to right ovary. No significant cystic lesions are noted. Impression By: Alfa Headley MD CAT SCAN - CT ABD PELVIS W/CONT 01/10 530 Report Impression - Status: SIGNED Entered: 01/11/2020 06 IMPRESSION: No significant abnormalities demonstrated. Impression By: Alfa Headley MD Point of Care Testing Pulse Oximetry Pulse Ox % 100 On: Room air Interpretation Interpreted by me Re-Evaluation MDM )( Re-Evaluation/Progress #1 Text/Dict Note Patient well-appearing. Abdominal pain resolved. No acute complaints at this time. Time of Re-Eval 729 )( Re-Eval Status Improved Re-Eval Abdomen Soft, Non-tender, No guarding, N o rebound, No distention ED Course Medication(s) Ordered Medication(s) Ordered: Diagnostic Agents Sig/Karen Start time Last Medication Dose Route Stop Time Status Admin Iopamidol 0 .STK-MED ONE 01/10 05 DC 01/10 .ROUTE 0546 Patient Discharge Departure Vital Signs/Condition Vital Signs First Documented: Result Date Time Pulse Ox 100 01/10 347 B/P 128/87 01/10 347 B/P Mean 100 01/10 347 O2 Delivery Room air 01/10 347 Temp 36.8 01/10 347 Pulse 78 01/10 347 Resp 01/10 Last Documented: Result Date Time Pulse Ox 98 01/10 635 B/P 123/81 01/10 635 B/P Mean 95 01/10 635 Temp 37.0 01/10 635 Pulse 58 01/10 635 Resp 16 05/07 0635 O2 Delivery Room air 01/10 0347 All vital signs available at the time of this en try have been reviewed. Clinical Impression Clinical Impression Primary Impression: Abdominal pain Disposition Decision Discharge )( Discharged to Home Yes )( Time 0731 )( Date 01/11/20 Discharge/Care Plan Counseled Regarding Diagnosi s, Lab results, Imaging studies, Need for follow-up, When to return to ED Referrals Lela Caro CNM (PCP/Family) Electronically Signed by Iván Doherty DO on 03/25 at 0740 RPT #:[id number] END OF REPORT 2019-10-21 16:17:00-00:00 [facility] ([facility]) Hospitalist Discharge Summary REPORT#:[id number] REPORT STATUS: Signed DATE:10/21/19 TIME: 1617 PATIENT: ARACELI CARO UNIT #: [id number] ROOM/BED: [address] : [birth year] AGE: 29 SEX: F ATTEND: Jose Neal II, MD ADM AUTHOR: Jose Neal II, MD * ALL edits or amendments must be made on the Interneer/computer document * PCP PCP Discharge to: home General Information Problem List/A P: 1. New onset atrial fibrillation Date of admission: Observation Start Date: 10/20/19 Date of admission: 10/20/19 Discharge date: 10/21/19 Hospital course: Ms. Caro is a 28 year old female with a history of anxiety, asthma, a fib, presenting with a fib. Atrial Fibrillation-rate con trolled. low risk of stroke given [id number] score of 1. Chronic, persistent af ib. Troponin negative x3. Echo shows normal EF, mild TVR/mild PVR -cardiology consulted, provided recommendations -telemetry -Initiate therapy with metoprolol 25 mg PO, Aspi rin 324 MG PO Headache -Tylenol 650 Mg Q4H PRN P0, Morphine 4 MG Q4H IA N IV Anxiety -Lorazepam PRN - Patient reports panic attacks every other carissa h. Initiated on lexapro 20mg daily. Nausea -PRN Ondansetron 4 mg Q6H IV Med Rec Med Rec Discharge meds: Start taking the following new medications: METOPROLOL SUCC XL (TOPROL XL) 25 MG TAB.SR.24H 25 MILLIGRAM ORAL DAILY. Days = 30 Qty = 30 Refills = 3 ASPIRIN (ASPIRIN) 81 MG TAB.CHEW 324 MILLIGRAM ORAL DAILY. Days = 30 Qty = 30 Refills = 3 ESCITALOPRAM (LEXAPRO) 20 MG TAB 20 MILLIGRAM ORAL DAILY. Days = 30 Qty = 30 Refills = 3 Discharge Instructions Diet: regular F/U labs/procedures/tests: PLEASE START TAKING ASPIRIN (BLOOD THINNER, TO P REVENT STROKE) AND METOPROLOL (CONTROLS HEART RATE) ON CE A DAY Find a primary care physician, and let him/her know you have atrial fibrillation, so they can start monitori ng your heart Objective General VS/I O: Vital Signs: Date Time Temp Pulse Resp B/P B/P Pulse O2 O2 F low FiO2 Mean Ox Delivery Rate 10/21 1114 98.4 67 18 119/86 96.6 99 Room air 10/21 0843 97.9 87 17 124/85 98.4 99 Room air 10/21 0325 98.1 67 16 114/72 86.0 100 Room air 10/20 2326 97.7 60 18 120/70 86.6 100 Room air 10/20 2250 97.7 68 16 120/79 92 100 Room air 10/20 1807 97.6 63 16 118/77 90 100 Room air 24 hour I O ending at 0700: 10/21 0700 10/20 1900 Intake Total Output Total Balance Patient 63.636 kg Weight Weight Standing scale Measurement Method Medications: Active Meds + DC'd Last 24 Hrs Enoxaparin Sodium 60 MG Q12HR SUBQ (DCD) Aspirin 324 MG DAILY PO (DCD) Metoprolol Succinate 25 MG DAILY PO (DCD) Acetaminophen 650 MG Q4H PRN PRN PO (DC) Morphine Sulfate 4 MG Q4H PRN PRN IV (DC) Ondansetron HCl 4 MG Q6H PRN PRN IV (DC) Sodium Chloride 1,000 ML .[id number] IV (DC) Physical Exam General appearance: alert, awake, oriented Head/Eyes: EOMI, PERRL Neck: JVD present Cardiovascular: irregularly irregular, normal ca pillary refill, normal heart sounds, no murmur Respiratory: aerating well, clear to auscultatio n Abdomen: non-tender, normal bowel sounds, soft Extremities: no edema Neuro/DIABETES TRAINER: alert, oriented X 3, CNII-XII intact, normal speech, reflexes equal bilat, no motor deficits, no sensory deficits Results Findings/Data: Laboratory Tests 10/21 10/20 0125 1818 Chemistry Troponin I (0 - 0.045 ng/mL) <0.015 <0.015 Electronically Signed by Jose Neal II, MD on at 1619 RPT #:[id number] END OF REPORT 2019-10-21 08:40:00-00:00 [id number] [facility] PATIENT NAME: ARACELI CARO ADMIT DATE: ACCOUNT NO: [id number] ROOM NO: [facility] AGE: 29 REPORT TYPE: eECHOCARDIOGRAM REPORT SEX: F DATE OF : [birth year] ADMITTING PHYSICIAN:Jose Neal II, MD ATTENDING PHYSICIAN:Jose Neal II, MD *[facility]* [address] [place], [place] [address] Transthoracic Echocardiogram Patient: Araceli Caro Study Date: 10/20/2019 BP: Location: [facility] URN: [id number] : 1990 Age: 29 Height: 59 in / 149.9 cm Gender: F Weight: 1 40.8 lb / 64 kg BMI/BSA: 28.5 kg/m 2 / 1.65 m 2 *Ordering Physician: * Jose Neal *Interpreting Physician: * Kirsten Ray MD *Box Person: Cody Reyna Indications: AFIB. Study data: Transthoracic echocardiogram. Proced ure: Transthoracic echocardiography was performed. Image quality wa s adequate. Complete 2D, complete spectral Doppler, and color Doppler . Location: Bedside. Patient status: Inpatient. Patient room number: ER. Study status: Routine. Rhythm: Atrial fibrillation. Findings Left ventricle: The cavity size is normal. Wall thickness is normal. Systolic function is normal. The estimated eject ion fraction is 55-60%. Wall motion is normal; there are no regional wal l motion abnormalities. Right ventricle: The cavity size is normal. Syst olic function is normal. Left atrium: The atrium is normal in size. PATIENT NAME: ARACELI CARO ACCOUNT #: [id number] Right atrium: The atrium is normal in size. Aorta: Aortic root: The aortic root is normal in size. Aortic valve: The valve is structurally normal. The valve is trileaflet. There is no evidence of stenosis. Th ere is no regurgitation. Mitral valve: The valve is structurally normal. There is no evidence of stenosis. There is no regurgitation. Tricuspid valve: The valve is structurally anne-marie l. There is mild regurgitation. Pulmonic valve: The valve is structurally normal . There is mild regurgitation. Pericardium: A small pericardial effusion is jennifer ntified posterior to the heart. Pulmonary arteries: The main pulmonary artery is normal-sized. Systemic veins: Inferior vena cava: The vessel is normal in size . Measurements Left ventricle Value Ref Aortic valve continued Value Ref ALPA, LAX 4.0 cm 3.8 - 5.2 Mean grad, S 2.5 mm Hg ----- ESD, LAX 2.9 cm 2.2 - 3.5 Peak grad, S 4.9 mm Hg ----- ESD/bsa, LAX 1.7 cm/m 2 1.3 - 2.1 LVOT/AV, VTI ratio 0.64 ----- FS, LAX 28 % 27 - 45 JAGDEEP, VTI 2.05 cm 2 ----- PW, ED 0.9 cm 0.6 - 0.9 LVOT/AV, Vpeak ratio 0.6 ----- IVS/PW, ED 1.08 JAGDEEP, Vmax 1.95 cm 2 ----- EF 55 % 54 - 74 E', med andrew, TDI 13.3 cm/sec >=7.0 Mitral valve Value Ref E/e', med andrew, TDI 7 E-septal separ ation 0.7 cm ----- E-F slope 0.14 m/sec ----- LVOT Value Ref Peak E 0.93 m/sec ----- Diam, S 2.03 cm Peak A 0.37 m/sec ----- Area 3.2 cm 2 Mean v, D 0.52 m/sec ----- Peak annetta, S 0.67 m/sec VTI leaflet coapt 17.7 cm ----- Mean annetta, S 0.47 m/sec Decel time 150 ms ----- VTI, S 13.7 cm PHT 58 ms ----- PATIENT NAME: ARACELI CARO ACCOUNT #: [id number] Peak grad, S 2 mm Hg Mean grad, D 1.4 mm Hg ----- Mean grad, S 1 mm Hg Peak grad, D 3.9 mm Hg ----- SV 44 ml Peak E/A ratio 2.51 ----- SV/bsa 27 ml/m 2 MVA, PHT 3.8 cm 2 ----- Ventricular septum Value Ref Tricuspid valve Value Ref IVS, ED 0.9 cm 0.6 - 0.9 TR peak v 2.65 m/sec <=2.8 Peak RV-RA grad, S 28 mm Hg ----- Right ventricle Value Ref ALPA, LAX 2.7 cm Aortic root Value Ref Pressure, S 36 mm Hg Root diam, ED MM 2.85 cm ----- Left atrium Value Ref Ascending aorta Value Ref AP dim, ES 3.39 cm 2.70 - 3.80 AAo AP diam, S 2.2 cm ----- AP dim, ES MM 3.6 cm 2.7 - 3.8 AAo AP diam/bsa, S 1.4 cm/m 2 ----- LA/Ao root ratio, MM 1.25 Pulmonary artery Value Ref Aortic valve Value Ref Pressure, S 34.5 mm Hg ----- Leaflet sep, MM 1.97 cm Peak v, S 1.1 m/sec Systemic veins Value Ref Mean v, S 0.73 m/sec Estimated CVP 8 mm Hg ----- VTI, S 21.5 cm Conclusions Summary: 1. Study data: Atrial fibrillation. 2. Left ventricle: The cavity size is normal. Wa ll thickness is normal. Systolic function is normal. The estimated ejec tion fraction is 55-60%. Wall motion is normal; there are no reg ional wall motion abnormalities. 3. Tricuspid valve: There is mild regurgitation. 4. Pulmonic valve: There is mild regurgitation. Prepared and electronically signed by PATIENT NAME: ARACELI CARO ACCOUNT #: [id number] Kirsten Ray MD 10/21/2019 08:39 at 0840 PATIENT NAME: ARACELI CARO ACCOUNT #: [id number] 2019-10-20 15:57:00-00:00 [facility] ([facility]) Hospitalist History Physical REPORT#:[id number] REPORT STATUS: Signed DATE:10/20/19 TIME: 1557 PATIENT: ARACELI CARO UNIT #: [id number] ROOM/BED: [address] : 91 AGE: 29 SEX: F ATTEND: Jose Neal II, MD ADM AUTHOR: Joes Neal II, MD * ALL edits or amendments must be made on the Interneer/computer document * History of Present Illness Free Text HPI Notes Free Text HPI Notes: Ms. Caro is a 28 year old female presenting wit h chest pain. She reports the pain woke her up at 3 am this morning. S he felt like her heart was beating out of her chest . She describes the pain as a tight ness. Pain was constant and persisted until ED arrival/treatment. She also reports a headache that started yesterd ay and has not remitted. She rates her headache a 4 out of 10. She fe lt the world spinning and felt nausea. She reports having similar symptoms previously a nd was diagnosed with Atrial fibrillation two years ago a [facility]. 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 She was not started on anticoagu lation. ROS Confirms SOB, Nausea, headache PMH Anxiety, Asthma PSH Tubal ligation Hospitalizations [facility] for Afib, 3 un complicated childbirths Meds- No at home medications reported Allergies- None known SH- Stopped smoking tobacco and drinking a year ago. She reports only intermittent tobacco use prior to stopping. Bhanu es illicit drug use FH- Sister has anxiety, Moth er healthy, Maternal grandmother has had strokes and MS History Additional medical history: anxiety, arrhythmia Past surgical history: Reports: Bilateral tubal ligation. Family history: Reports: Depression/mood disorder. Alcohol use: Denies EtOH use Drug use: Denies recreational drugs Smoking status for patients 13 years old or olde r: Never Smoker Other social history: Local resident, Good socia l support Medication/Allergy-Vaccine Hx Home Medications: No Known Home Medications Discontinued Medications ACETAMINOPHEN/CODEINE (TYLEN OL WITH CODEINE #3 300/30 MG) 1-2 TAB PO Q6H PRN PRN PAIN Discontinued reason: Patient stopped taking IBUPROFEN (MOTRIN) 800 MG PO Q6H PRN Discontinued reason: Patient stopped taking PNV/FE FUM/FA ( MULTIVITAMIN) 1 TAB PO D AILY Discontinued reason: Patient stopped taking Allergies: Coded Allergies: No Known Allergies (10/20/19) Review of Systems All systems rev neg: except as marked Objective General VS/I O: Vital Signs: Date Time Temp Pulse Resp B/P B/P Pulse O2 O2 F low FiO2 Mean Ox Delivery Rate 10/20 1445 97.5 66 16 113/80 91 100 Room air 10/20 1217 97.7 81 16 127/73 91 100 Room air 10/20 0950 97.5 70 16 135/99 111 100 Room air 10/20 0807 97.6 96 22 100 Room air Patient Weight Weight (lb): Weight (oz): Weight (kg): 63.636 Medications: Active Meds + DC'd Last 24 Hrs Enoxaparin Sodium 60 MG Q12HR SUBQ Aspirin 324 MG DAILY PO Metoprolol Succinate 25 MG DAILY PO Acetaminophen 650 MG Q4H PRN PRN PO Morphine Sulfate 4 MG Q4H PRN PRN IV Ondansetron HCl 4 MG Q6H PRN PRN IV Sodium Chloride 1,000 ML .[id number] IV Enoxaparin Sodium 63.636 MG X1ED STA SUBQ (DC) Sodium Chloride 999 ML ONCE ONE IV (DC) Lorazepam 1 MG ONCE ONE PO (DC) Physical Exam General appearance: alert, awake, oriented Head/Eyes: EOMI, PERRL Neck: JVD present Cardiovascular: irregularly irregular, normal ca pillary refill, normal heart sounds, no murmur Respiratory: aerating well, clear to auscultatio n Abdomen: non-tender, normal bowel sounds, soft Extremities: no edema Neuro/DIABETES TRAINER: alert, oriented X 3, CNII-XII intact, normal speech, reflexes equal bilat, no motor deficits, no sensory deficits Results Findings/Data: Laboratory Tests 10/20 10/20 10/20 10/20 10/20 0855 0855 0855 0855 0855 Chemistry Sodium (136 - 145 mmol/L) 143 Potassium (3.5 - 5.1 mmol/L) 3.5 Chloride (98 - 107 mmol/L) 109.0 H Carbon Dioxide (21 - 32 mmol/L) 27.0 Anion Gap (10 - 20) 10.5 BUN (7 - 18 mg/dL) 14 Creatinine (0.55 - 1.02 mg/dL) 0.90 Glomerular Filtr Rate (>=60 mL/min) > 60 BUN/Creatinine Ratio (10 - 20) 15.6 Glucose (74 - 106 mg/dL) 88 Hemoglobin A1c (% HbA1) 5.2 Estim Average Glucose (MG/DL) 103 Calcium (8.5 - 10.1 mg/dL) 9.2 Phosphorus (2.5 - 4.9 mg/dL) 2.2 L Magnesium (1.8 - 2.4 mg/dL) 1.9 Troponin I (0 - 0.045 ng/mL) <0.015 TSH (0.36 - 3.74 uIU/mL) 2.080 1.940 Free T4 Index (1.3 - 5.1 FTI) 3.74 Thyroxine (T4) (4.5 - 13.9 ug/dL) 11.0 T3 Uptake (30.0 - 40.0 %) 34.0 Laboratory Tests 10/20 10/20 0855 0855 Coagulation INR (0.8 - 1.2) 1.1 PTT (Calvin) (25.0 - 36.5 seconds) 35.9 PT Patient/Control Mix (9.0 - 14.0 seconds) 13. 1 D-Dimer (0 - 500 ng/mLFEU) 217.00 Laboratory Tests 10/20 0855 Hematology WBC (4.5 - 12.5 K/mm3) 3.1 L RBC (3.7 - 5.2 mill/mm3) 5.57 H Hgb (11.5 - 15.5 gram/dL) 15.5 Hct (36.0 - 46.0 %) 47.1 H MCV (80 - 98 fL) 84.6 MCH (27.0 - 33.0 picogram) 27.8 MCHC (33.0 - 36.0 gram/dL) 32.9 L RDW (11.6 - 16.2 %) 13.1 Plt Count (150 - 450 K/mm3) 249 MPV (6.7 - 11.0 fL) 9.8 Diagnosis, Assessment Plan Problem List/A P: 1. New onset atrial fibrillation Free Text DxA P Notes Free Text DxA P Notes: Ms. Caro is a 28 year old female with a history of anxiety, asthma, a fib, presenting with a fib. Atrial Fibrillation-rate con trolled. low risk of stroke given [id number] score of 1 -Obtain echocardiogram -cardiology consult -telemetry, . -Continue maintenance fluids -Initiate therapy with metoprolol 25 mg PO, Aspi rin 324 MG PO - Lovenox 60 MG Q12HR SUBQ pending results of ec ho and further delineation of chadsvasc/stroke risk Headache -Continue Tylenol 650 Mg Q4H PRN P0, Morphine 4 MG Q4H PRN IV Anxiety -Lorazepam PRN - Patient reports panic kan cks every other month. Zoloft discussed with patient , deferred for now Nausea -Continue Ondansetron 4 mg Q6H IV Full Code Regular diet PPX: Lovenox Admit to inpatient Electronically Signed by Jose Neal II, MD on at 1606 RPT #:[id number] END OF REPORT 2019-10-20 12:26:00-00:00 [facility] ([facility]) Cardiology Consultation REPORT#:[id number] REPORT STATUS: Signed DATE:10/20/19 TIME: 1226 PATIENT: ARACELI CARO UNIT #: [id number] ROOM/BED: [place] [address] : 91 AGE: 29 SEX: F ATTEND: Jose Neal II, MD ADM AUTHOR: Galdino Mendosa MD * ALL edits or amendments must be made on the el Layerronic/computer document * History of Present Illness HPI Requesting Clinician: Jose Nickerson Reason for consult: PAF HPI: 29 yo W with h/o tachyarrhythmia diagnosed sever al years ago however without regular fu, presents with co palpitations, lightheadedness, today. Noted to have afib on EKG. Denies prior h/o DM, HF, CVA/TIA, o r ASCVD. History - Adult longitudinal Additional medical history: anxiety, arrhythmia Past surgical history: Reports: Bilateral tubal ligation. Family history: Reports: Depression/mood disorder. Alcohol use: Denies EtOH use Drug use: Denies recreational drugs Smoking status for patients 13 years old or olde r: Never Smoker Other social history: Local resident, Good socia l support Medications: Home Medications: Medication Dose/Rte/Freq Days Qty Entered Last Max Daily Dose Reviewed No Known Home Medications Current Hospital Medications: Blood Formation,Coagulation Sig/Karen Start time Last Medication Dose Route Stop Time Status Admin Enoxaparin Sodium 60 MG Q12HR 10/20 2100 AC (LOVENOX 60MG SUBQ 11/18 2059 SYRINGE) Enoxaparin Sodium 63.636 MG X1ED STA 10/20 1014 DC 10/20 (LOVENOX 60MG SUBQ 10/20 1015 1043 SYRINGE) Cardiovascular Drugs Sig/Karen Start time Last Medication Dose Route Stop Time Status Admin Metoprolol Succinate 25 MG DAILY 10/20 1200 r (TOPROL XL 25MG) PO 11/19 0859 Central Nervous System Agents Sig/Karen Start time Last Medication Dose Route Stop Time Status Admin Acetaminophen 650 MG Q4H PRN PRN 10/20 1030 AC (TYLENOL) PO 10/20 2222 Morphine Sulfate 4 MG Q4H PRN PRN 10/20 1030 AC (morphine SULFATE) IV 10/20 2222 Lorazepam 1 MG ONCE ONE 10/20 0830 DC 10/20 (LORazepam) PO 10/20 0831 0835 Electrolytic, Caloric, And Rupa Sig/Karen Start time Last Medication Dose Route Stop Time Status Admin Sodium Chloride 1,000 ML .[id number] 10/20 1030 A C 10/20 (SODIUM CHLORIDE IV 02/14 2222 1044 0.9%) Sodium Chloride 999 ML ONCE ONE 10/20 914 DC 0 10/20 (SODIUM CHLORIDE IV 10/20 915 0924 0.9%) Gastrointestinal Drugs Sig/Karen Start time Last Medication Dose Route Stop Time Status Admin Ondansetron HCl 4 MG Q6H PRN PRN 10/20 1030 AC (ONDANSETRON HCL) IV 10/20 2221 Allergies: Coded Allergies: No Known Allergies (10/20/19) Review of Systems All systems rev neg: except as marked Objective Physical Exam VS/I O: Vital Signs: Date Time Temp Pulse Resp B/P B/P Pulse O2 O2 F low FiO2 Mean Ox Delivery Rate 10/20 1217 97.7 81 16 127/73 91 100 Room air 10/20 0950 97.5 70 16 135/99 111 100 Room air 10/20 0807 97.6 96 22 100 Room air Patient Weight Weight (lb): Weight (oz): Weight (kg): 63.636 General appearance: alert, oriented Neck: no bruit/NL carotids, no JVD Cardiovascular: CV assessment: irregular rhythm, normal heart s ounds Respiratory: clear to auscultation, no distress Abdomen: soft, non-tender Upper extremity: UE assessment: normal temperature Lower extremity: LE assessment: normal temperature, no edema Results Findings/Data: Laboratory Tests 10/20 10/20 10/20 0855 0855 0855 Chemistry Sodium (136 - 145 mmol/L) 143 Potassium (3.5 - 5.1 mmol/L) 3.5 Chloride (98 - 107 mmol/L) 109.0 H Carbon Dioxide (21 - 32 mmol/L) 27.0 Anion Gap (10 - 20) 10.5 BUN (7 - 18 mg/dL) 14 Creatinine (0.55 - 1.02 mg/dL) 0.90 Glomerular Filtr Rate (>=60 mL/min) > 60 BUN/Creatinine Ratio (10 - 20) 15.6 Glucose (74 - 106 mg/dL) 88 Calcium (8.5 - 10.1 mg/dL) 9.2 Phosphorus (2.5 - 4.9 mg/dL) 2.2 L Magnesium (1.8 - 2.4 mg/dL) 1.9 Troponin I (0 - 0.045 ng/mL) <0.015 TSH (0.36 - 3.74 uIU/mL) 2.080 Laboratory Tests 10/20 10/20 0855 0855 Coagulation INR (0.8 - 1.2) 1.1 PTT (Calvin) (25.0 - 36.5 seconds) 35.9 PT Patient/Control Mix (9.0 - 14.0 seconds) 13. 1 D-Dimer (0 - 500 ng/mLFEU) 217.00 Laboratory Tests 10/20 0855 Hematology WBC (4.5 - 12.5 K/mm3) 3.1 L RBC (3.7 - 5.2 mill/mm3) 5.57 H Hgb (11.5 - 15.5 gram/dL) 15.5 Hct (36.0 - 46.0 %) 47.1 H MCV (80 - 98 fL) 84.6 MCH (27.0 - 33.0 picogram) 27.8 MCHC (33.0 - 36.0 gram/dL) 32.9 L RDW (11.6 - 16.2 %) 13.1 Plt Count (150 - 450 K/mm3) 249 MPV (6.7 - 11.0 fL) 9.8 Laboratory Tests 10/20 10/20 0855 0855 Chemistry Magnesium (1.8 - 2.4 mg/dL) 1.9 Troponin I (0 - 0.045 ng/mL) <0.015 Radiology Data: Recent Impressions: RADIOLOGY - XR CHEST 1 V 10/20 0927 Report Impression - Status: SIGNED Entered: 10/20/2019 0944 IMPRESSION: No acute infiltrates, effusion or congestion. Impression By: [email or web address] - Zuhair Jc M.D. Diagnosis, Assessment Plan Problem List/A P: 1. New onset atrial fibrillation Free Text DxA P Notes Free Text DxA P Notes: 29 yo W PAF - lone Recs: SW consult Lovenox for now ASA 325 mg qd metoprolol 25 mg qd Calculate CHADS-VASC: Check HbA1c, echo at 1255 RPT #:[id number] END OF REPORT 2019-10-20 08:23:00-00:00 [facility] ([facility]) EMERGENCY PROVIDER REPORT REPORT#:[id number] REPORT STATUS: Signed DATE:10/20/19 TIME: 08 PATIENT: ARACELI CARO UNIT #: [id number] ROOM/BED: [facility] AGE: 29 SEX: F PCP PHYS: Lela Caro Liliane CN SERVICE AUTHOR: Loni Page DO * ALL edits or amendments must be made on the el Layerronic/computer document * HPI-General Illness Free Text HPI Notes Free Text HPI Notes The patient is a 29-year-old female with a past medical history of anxiety and then unknown cardiac condition is presenting wit h symptoms of anxiety and she feels that she is having a panic attack which be olga at 3 in the morning. Its associated with intermittent and worsening episo giovany of feeling flushed, palpitations, dyspnea, chest tightness, spinning sensation and tingling in her upper extremities bilaterally. She denies any pr evious history of DVT/PE or bilateral lower extremity edema. General Confirmed Patient Yes Initial Greet Date/Time 10/20/19 0811 PCP none Presentation Chief Complaint Anxiety Hx Obtained From Patient Sudden in Onset? Yes Onset Occurred Today (@0300) Symptom Duration Since onset, Waxes and wanes Progression since Onset Intermittent, Gradually worsening Context Similar Sx Previous Yes Portions of this section were scribed by Ariella Cardoza on 10/20/19 at 1039 Review of Systems ROS Statements All systems rev neg except as marked. Review of Systems Respiratory Reports: Shortness of breath. Cardiovascular Reports: Chest pain, Palpitations. Musculoskeletal Denies: Extremity swelling. Neurologic Reports: Spinning sensation, Tingling. Psychiatric Reports: Anxiety. Portions of this section were scribed by Ariella Cardoza on 10/20/19 at 0837 Past Medical History - Adult Stated Complaint ANXIETY ATTACK Allergies Coded Allergies: No Known Allergies (10/20/19) Home Medications Discontinued Scripts IBUPROFEN (MOTRIN) 800 MG PO Q6H PRN IBUPROFEN (MOTRIN) 800 MG PO Q6H PRN #60 Prov: 09/19/15 DC: 10/20/19 0839 Patient stopped taking Reported Medications No Known Home Medications Discontinued Reported Medications ACETAMINOPHEN/CODEINE (TYLEN OL WITH CODEINE #3 300/30 MG) 1-2 TAB PO Q6H PRN PRN PAIN PNV/FE FUM/FA ( MULTIVITAMIN) 1 TAB PO D AILY Additional Medical History anxiety, arrhythmia Past Surgical History: Reports: Bilateral tubal ligation. Family History: Reports: Depression/mood disorder. Alcohol Use Denies EtOH use Drug Use Denies recreational drugs Smoking status for patients 13 years old or olde r: Never Smoker Other Social History Local resident, Good social support Portions of this section were scribed by Ariella Cardoza on 10/20/19 at 0905 Physical Exam Vital Signs Vital Signs First Documented: Result Date Time Pulse Ox 100 10/20 0807 O2 Delivery Room air 10/20 0807 Temp 36.4 10/20 0807 Pulse 96 10/20 0807 Resp 22 10/20 0807 B/P 135/99 10/20 0950 B/P Mean 111 10/20 0950 Last Documented: Result Date Time Pulse Ox 100 10/20 0950 B/P 135/99 10/20 0950 B/P Mean 111 10/20 0950 O2 Delivery Room air 10/20 0950 Temp 36.4 10/20 0950 Pulse 70 10/20 0950 Resp 16 10/20 0950 Review of Vital Signs Reviewed Physical Exam General/Const General/Const Awake, Alert, No acute distress, Well developed MS Head Head Atraumatic, Normocephalic Eyes Eyes Atraumatic, EOMI Ears/Nose/Throat Ears/Nose/Throat Atraumatic, Airway patent, Muc ous membranes moist, Pharynx NL MS Neck Neck Supple, Full range of motion, No lymphaden opathy Resp/Chest Respiratory/Chest No respiratory distre ss, No rales, No rhonchi, No wheezing, No stridor, No chest tenderness Cardiovascular Cardiovascular Heart rate NL, Regular rhythm, H eart sounds NL Abdomen/GI Abdomen/GI Soft, Non-tender, No guarding, No re bound, No distention MS Back Back No CVA tenderness MS Lower Extrem Lower Ext/Pelvis/MS No edema Skin Skin Color NL, No rash, Warm, Dry, Intact Neurologic Neurologic Oriented X3, Speech NL, No motor def icits, No sensory deficits, Reflexes equal bilat, Negative pronator drift Text/Dict Notes speech is clear, 5/5 muscle strength in BL UE BL LE Psychiatric Abnormal Mood/Affect Anxious. Portions of this section were scribed by Ariella Cardoza on 10/20/19 at 1013 Interpretation Diagnostics Lab Results Interpretation Results Laboratory Tests 10/20/19 0855: [Embedded Image Not Available] Laboratory Tests: 10/20 10/20 10/20 0855 0855 0855 Chemistry Sodium (136 - 145 mmol/L) 143 Potassium (3.5 - 5.1 mmol/L) 3.5 Chloride (98 - 107 mmol/L) 109.0 H Carbon Dioxide (21 - 32 mmol/L) 27.0 Anion Gap (10 - 20) 10.5 BUN (7 - 18 mg/dL) 14 Creatinine (0.55 - 1.02 mg/dL) 0.90 Glomerular Filtr Rate (>=60 mL/min) > 60 BUN/Creatinine Ratio (10 - 20) 15.6 Glucose (74 - 106 mg/dL) 88 Calcium (8.5 - 10.1 mg/dL) 9.2 Phosphorus (2.5 - 4.9 mg/dL) 2.2 L Magnesium (1.8 - 2.4 mg/dL) 1.9 Troponin I (0 - 0.045 ng/mL) <0.015 TSH (0.36 - 3.74 uIU/mL) 2.080 Coagulation INR (0.8 - 1.2) 1.1 PTT (Calvin) (25.0 - 36.5 seconds) 35.9 PT Patient/Control Mix (9.0 - 14.0 seconds) 13. 1 D-Dimer (0 - 500 ng/mLFEU) 217.00 Hematology WBC (4.5 - 12.5 K/mm3) 3.1 L RBC (3.7 - 5.2 mill/mm3) 5.57 H Hgb (11.5 - 15.5 gram/dL) 15.5 Hct (36.0 - 46.0 %) 47.1 H MCV (80 - 98 fL) 84.6 MCH (27.0 - 33.0 picogram) 27.8 MCHC (33.0 - 36.0 gram/dL) 32.9 L RDW (11.6 - 16.2 %) 13.1 Plt Count (150 - 450 K/mm3) 249 MPV (6.7 - 11.0 fL) 9.8 Recent Impressions: RADIOLOGY - XR CHEST 1 V 10/20 926 Report Impression - Status: SIGNED Entered: 10/20/201944 IMPRESSION: No acute infiltrates, effusion or congestion. Impression By: [email or web address] Chino Jc M.D. Lab Imaging Statement Laboratory radiographic studies reviewed and con sidered in the medical decision-making. Point of Care Testing Pulse Oximetry Pulse Ox % 100 On: Room air Interpretation Interpreted by me, Pulse oximetr y normal Time 0807 ECG #1 Interpretation Date 10/20/19 Time 0828 Interpreted by and reviewed by me, ED physician NL ECG Interpretation No STEMI Rate 86 Rhythm Atrial fibrillation Lab Studies Cardiac and Vascular Interpretation Troponin NL, D-Dimer NL (217) Radiography X-Ray Chest Text/Dict Note IMPRESSION: No acute infiltrates, effusion or co ngestion. Interpretation/Wet Read by Interpret - Radiolog ist Reviewed by ED physician Portions of this section were scribed by Ariella Cardoza on 10/20/19 at 1039 Re-Evaluation MDM Re-Evaluation/Progress #1 Text/Dict Note The patient's EKG showed atrial fibrillation and her electrolytes and d-dimer are within normal limits. She received L ovenox and she will be admitted to the hospital with a consult to cardiology. ED Course Medication(s) Ordered Medication(s) Ordered: Blood Formation,Coagulation Sig/Karen Start time Last Medication Dose Route Stop Time Status Admin Enoxaparin Sodium 63.636 MG X1ED STA 10/20 1014 DC 10/20 SUBQ 10/20 1015 1043 Central Nervous System Agents Sig/Karen Start time Last Medication Dose Route Stop Time Status Admin Acetaminophen 650 MG Q4H PRN PRN 10/20 1030 AC PO 10/20 2222 Morphine Sulfate 4 MG Q4H PRN PRN 10/20 1030 AC IV 10/20 2222 Lorazepam 1 MG ONCE ONE 10/20 0830 DC 10/20 PO 10/20 0831 0835 Electrolytic, Caloric, And Rupa Sig/Karen Start time Last Medication Dose Route Stop Time Status Admin Sodium Chloride 1,000 ML .[id number] 10/20 1030 AC 10/20 IV 10/20 2222 1044 Sodium Chloride 999 ML ONCE ONE 10/20 0915 DC 0 10/20 IV 10/20 0916 0924 Gastrointestinal Drugs Sig/Karen Start time Last Medication Dose Route Stop Time Status Admin Ondansetron HCl 4 MG Q6H PRN PRN 10/20 1030 AC IV 10/20 2222 Consultation Consultation Referral/Consult Name Galdino Mendosa MD [employer] Marketing Manager Called Cardiology Requested Call Time 09 Requested Call Date 10/20/19 Call Returned Call returned Call Returned Time 09 Call Returned Date 10/20/19 Free Text Consult Notes agrees w/ lovenox if kidney function is normal Portions of this section were scribed by Ariella Cardoza on 10/20/19 at 1039 Patient Discharge Departure Vital Signs/Condition Vital Signs First Documented: Result Date Time Pulse Ox 100 10/20 0807 O2 Delivery Room air 10/20 0807 Temp 36.4 10/20 0807 Pulse 96 10/20 0807 Resp 22 10/20 0807 B/P 135/99 / 0950 B/P Mean 111 10/20 0950 Last Documented: Result Date Time Pulse Ox 100 10/20 0950 B/P 135/99 / 0950 B/P Mean 111 10/20 0950 O2 Delivery Room air 10/20 0950 Temp 36.4 10/20 0950 Pulse 70 10/20 0950 Resp 16 10/20 0950 All vital signs available at the time of this en try have been reviewed. Condition Improved Clinical Impression Clinical Impression Primary Impression: New onset atrial fibrillatio n Disposition Decision Admit Admit Physician Name Jose Neal II, MD Admit Physician Hospitalist Request Time 1014 Request Date 10/20/19 )( Admission Accepts Yes )( Accepted Time 1014 )( Accepted Date 10/20/19 Call Information will see patient Discharge/Care Plan Counseled Regarding Diagnosi s, Lab results, Imaging studies, Need for admission Supervising Physician Note Scribe Statement Ariella Cardoza, 10/20/19 0823, scribing for and in the presence of [Loni Page DO]. Signed By: Ariella Cardoza, 10/20/19 0823 Provider Scribed Statement I personally performed the s ervices described in this documentation and reviewed the documentation that was dictated to the scrib e(s) in my presence, and it accurately records my words and actions. Loni Pierce, 10/20/19 Portions of this section were scribed by Ariella Cardoza on 10/20/19 at 1039 Electronically Signed by Loni Page DO on 0 10/20/19 at 1201 [facility] #:[id number] END OF REPORT
[2023-05-07 01:53] LABS: Specific Gravity 1.009 (1.005-1.030); Urine Bacteria None Seen /HPF (<20); Urine Bilirubin NEGATIVE (Negative); Urine Blood Negative (Negative); Urine Clarity Clear (Clear); Urine Color Colorless (Yellow); Urine Glucose NEGATIVE (Negative); Urine Mucus Slight /HPF (None Seen); Urine Protein NEGATIVE (Negative); Urine RBC <5 /HPF (None Seen); Urine Urobilinogen Normal (Normal)
[2023-05-07 01:55] LABS: Absolute Lymphocytes (CBC) 2.1 K/uL (0.7-4.9); Hematocrit 36.7 % (36.0-45.0); Lymphocytes % 41.4 % (15.3-44.8); MCV 83.9 fL (80-100); MPV 7.8 fL (7.6-11.3); Platelets 291 thou/uL (152-406); RBC Red Blood Cell Count 4.37 M/uL (3.86-4.86)
[2023-05-07 02:07] LABS: Albumin 3.7 g/dL (3.4-5.0); Bilirubin Total 0.2 mg/dL (0.2-1.0); C-Reactive Protein 3.49 mg/L (<3.00); Potassium 3.4 mEq/L (3.5-5.1); Protein, Total 7.4 g/dL (6.4-8.2)
[2023-05-07] MEDS ORDERED: DICYCLOMINE HCL 10 MG CAP ONE (02:11)
[2023-05-07] MEDS ORDERED: NA CHLORIDE 0.9% 1,000 ML ONE (02:12)
[2023-05-07] MEDS ORDERED: ONDANSETRON 4 MG/2 ML VIAL ONE (02:12)
[2023-05-07] MEDS ORDERED: KETOROLAC 30 MG/ML INJ ONE (02:12)
--- NOTE | 2023-05-07 04:03 | EDPHYS ---
Physician Documentation [facility] Name: Veronika White Age: 32 yrs Sex: Female : 1990 Arrival Date: 05/07/2023 Time: 01:02 Bed 5 Private MD: ED Physician Sorin Escalante HPI: 05/07 01:08 This 32 yrs old Black Female presents to ER via Unassigned with complaints of Abdominal sp4 Pain. 01:16 This is 32-year-old female who presents with left lower pelvic pain starting today. sp4 Patient states the last 2 months she had episode of left lower pelvic pain. Patient's last menstrual period 05/02/2023. Patient reported that she had spotting that comes in between her periods. Patient has a history of uterine fibroids. History of bilateral tubal ligation in 2016. Patient states that is worsening left lower pelvic pain. Denied any vomiting or bloody urine. No vaginal bleeding at this time. 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 - Social history:: Smoking status: Patient reports the use of cigarette tobacco products, denies chronic smoking, but will smoke occasionally, Patient uses alcohol, occasionally. street drugs, marijuana. - Family history:: not pertinent. ROS: 01:16 Constitutional: Negative for fever, chills, and weight loss, : Negative for injury, sp4 bleeding, discharge, and swelling, positive for left pelvic pain 01:16 All other systems are negative. Exam: 01:16 Constitutional: This is a well developed, well nourished patient who is awake, alert, sp4 and in no acute distress. Head/Face: Normocephalic, atraumatic. Eyes: Pupils equal round and reactive to light, extra-ocular motions intact. Lids and lashes normal. Conjunctiva and sclera are not injected. Cornea within normal limits. Periorbital areas with no swelling, redness, or edema. ENT: Nares patent. No nasal discharge, no septal abnormalities noted. Tympanic membranes are normal and external auditory canals are clear. Oropharynx with no redness, swelling, or masses, exudates, or evidence of obstruction, uvula midline. Mucous membranes moist. Neck: Trachea midline, no thyromegaly or masses palpated, and no cervical lymphadenopathy. Supple, full range of motion without nuchal rigidity, or vertebral point tenderness. Chest/axilla: Normal chest wall appearance and motion. Nontender with no deformity. No lesions are appreciated. Cardiovascular: Regular rate and rhythm with a normal S1 and S2. No gallops, murmurs, or rubs. Normal PMI, no JVD. No pulse deficits. Respiratory: Lungs have equal breath sounds bilaterally, clear to auscultation and percussion. No rales, rhonchi or wheezes noted. No increased work of breathing, no retractions or nasal flaring. Abdomen/GI: Soft, non-tender, with normal bowel sounds. No distension or tympany. No guarding or rebound. No evidence of tenderness throughout. Back: No spinal tenderness. No costovertebral tenderness. Skin: Warm, dry with normal turgor. Normal color with no rashes, no lesions, and no evidence of cellulitis. MS/ Extremity: Pulses equal, no cyanosis. Neurovascular intact. Full, normal range of motion. Neuro: Awake and alert, GCS 15, oriented to person, place, time, and situation. Cranial nerves II-XII grossly intact. Motor strength 5/5 in all extremities. Sensory grossly intact. Psych: Awake, alert, with orientation to person, place and time. Behavior, mood, and affect are within normal limits Vital Signs: 01:22 BP 157 / 89; Pulse 68; Resp 17 S; Temp 98.9(O); Pulse Ox 100% on R/A; Weight 72.57 kg lg3 (R); Height 4 ft. 11 in. (R); 02:15 BP 138 / 105; Pulse 65; Resp 17 S; Pulse Ox 100% on R/A; lg3 03:15 BP 130 / 84; Pulse 52; Resp 17; Pulse Ox 100% ; vc1 01:22 Body Mass Index 32.32 (72.57 kg, 149.86 cm) lg3 MDM: 01:09 Patient medically screened. sp4 03:50 ED course: CT abdomen / pelvis - FINDINGS: Lung bases: The lung bases are clear. sp4 Liver:The liver is normal in size and configuration. No focal hepatic abnormalities are identified. Liver attenuation is within normal limits. The portal veins are patent. Spleen:The spleen is normal in size, configuration and attenuation. Gallbladder and bile duct: The gallbladder is well distended and unremarkable. There is no biliary ductal dilatation. Pancreas: The pancreas is grossly normal in size and configuration. Adrenal Glands:The adrenal glands are normal in size and configuration. Kidneys:The kidneys are normal in size and configuration. There is no evidence of hydronephrosis. There is no evidence of nephrolithiasis. No definite solid or cystic renal mass lesions are identified. Stomach:The stomach is grossly normal. There is no definite hiatal hernia. Bowel:The bowel gas pattern is non specific and non obstructive. Appendix: The appendix is normal. Free air:There is no evidence of free air. Free fluid: There is no evidence of free fluid. Vasculature: The aorta is normal in caliber and contour. The inferior vena cava is grossly unremarkable. Lymphadenopathy: No pathologic lymphadenopathy is identified. Bladder: The bladder is well distended and smooth in contour. Reproductive: The uterus is grossly within normal limits. There are bilateral fallopian tube ligation clips. Bones: No acute osseous abnormalities are identified. Soft tissues: No acute soft tissue abnormalities are identified. IMPRESSION: No evidence of acute intra-abdominal or intrapelvic pathology. ED course: US - FINDINGS: The uterus is normal in size, shape and echogenicity and measures 8.8 x 4.3 x 5.3 cm. The endometrial complex measures 0.3 cm in thickness. There is no endometrial fluid. The region of the cervix is unremarkable. The right ovary measures 3.1 x 1.8 x 2.4 cm. The right ovary is grossly normal in appearance. Doppler imaging demonstrates normal spectral and color Doppler flow. The left ovary measures 3.3 x 2.0 x 1.9 cm. The left ovary is grossly normal in appearance. Doppler imaging demonstrates normal spectral waveforms and color Doppler flow. There is trace free fluid in the pelvis. IMPRESSION: 1. Grossly normal sonographic evaluation of the uterus and ovaries. 2. Trace free fluid in the pelvis. . 04:00 Differential Diagnosis sepsis, flu, Endometriosis, ovarian cyst, bleeding ovarian cyst, sp4 ovarian mass. Data reviewed: vital signs, nurses notes, lab test result(s), radiologic studies, CT scan, ultrasound. Consideration of Admission/Observation Escalation of care including admission/observation considered. ED course: Work-up today is unremarkable. No sign of emergent medical condition. No sign of ovarian cysts,. No sign of uterine fibroids, patient is positive elevated CRP, possible endometriosis or another condition that is not clearly visualized on the CT /ultrasound. This time patient stable for discharge home. . 05/07 01:09 Order name: Urinalysis W/Microscopic; Complete Time: 02:55 sp4 05/07 01:09 Order name: Test, Urine; Complete Time: 02:55 sp4 05/07 01:14 Order name: CBC with Diff; Complete Time: 02:55 sp4 05/07 01:14 Order name: CMP; Complete Time: 02:55 sp4 05/07 01:14 Order name: Lipase; Complete Time: 02:55 sp4 05/07 01:14 Order name: CRP; Complete Time: 02:55 sp4 05/07 01:14 Order name: CT Abd/Pelvis - IV Contrast Only sp4 05/07 02:12 Order name: Transvaginal Study Probe [facility] 05/07 01:14 Order name: IV Saline Lock; Complete Time: 01:43 sp4 05/07 01:14 Order name: Labs collected and sent; Complete Time: 01:43 sp4 Administered Medications: 02:14 Drug: NS 0.9% IV 1000 ml Route: IV; Rate: 1 bolus; Site: right antecubital; lg3 02:14 Drug: Ondansetron IVP 4 mg Route: IVP; Site: right antecubital; lg3 04:11 Follow up: Response: No adverse reaction; Marked relief of symptoms vc1 02:14 Drug: Dicyclomine PO 20 mg Route: PO; lg3 04:10 Follow up: Response: No adverse reaction; Marked relief of symptoms vc1 02:15 Drug: TORadol - Ketorolac IVP 30 mg Route: IVP; Site: right antecubital; lg3 04:11 Follow up: Response: No adverse reaction; Marked relief of symptoms vc1 04:10 Drug: Ibuprofen PO 800 mg Route: PO; vc1 04:10 Follow up: Response: Medication administered at discharge. vc1 04:10 Drug: Promethazine PO 25 mg Route: PO; vc1 04:10 Follow up: Response: Medication administered at discharge. vc1 Disposition Summary: 05/07/23 04:02 Discharge Ordered Location: Home sp4 Problem: new sp4 Symptoms: have improved sp4 Condition: Stable sp4 Diagnosis - Pelvic and perineal pain sp4 - Left groin pain, left lower pelvic pain. sp4 Followup: sp4 - With: Zoie Xavier MD - When: 7 - 10 days - Reason: Recheck today's complaints Discharge Instructions: - Discharge Summary Sheet sp4 - Pelvic Pain, Female, [id number] sp4 Forms: - Patient Portal Instructions sp4 Prescriptions: - Ibuprofen 800 mg Oral Tablet - take 1 tablet by ORAL route every 8 hours As needed take with food; 30 tablet; sp4 Refills: 0, Product Selection Permitted - promethazine 25 mg Oral Tablet - take 1 tablet by ORAL route every 6 hours As needed PRN nausea; 30 tablet; sp4 Refills: 0, Product Selection Permitted - dicyclomine 20 mg Oral Tablet - take 1 tablet by ORAL route every 6 hours PRN pain; 30 tablet; Refills: 0, sp4 Product Selection Permitted Signatures: Dispatcher [employer] EDMS Amelia Alcantar RN RN lg3 Dara Atwood RN RN vc1 Sorin Escalante MD MD sp4 Corrections: (The following items were deleted from the chart) 02:10 01:15 Pelvis Complete+US.RAD.BRZ ordered. EDMS EDMS
--- NOTE | 2023-05-07 04:03 | ER ---
Nurse's Notes [facility] Name: Veronika Caro Age: 32 yrs Sex: Female : 1990 Arrival Date: 05/07/2023 Time: 01:02 Bed 5 Private MD: Diagnosis: Pelvic and perineal pain;Left groin pain, left lower pelvic pain. Presentation: 05/07 01:22 Chief complaint: Patient states: left pelvic pain before cycles X2 months. Coronavirus lg3 screen: Client denies travel out of the [place] in the last 14 days. At this time, the client does not indicate any symptoms associated with coronavirus-19. Ebola Screen: No symptoms or risks identified at this time. Initial Sepsis Screen: Does the patient meet any 2 criteria? No. Patient's initial sepsis screen is negative. Does the patient have a suspected source of infection? No. Patient's initial sepsis screen is negative. Risk Assessment: Do you want to hurt yourself or someone else? Patient reports no desire to harm self or others. Onset of symptoms is unknown. 01:22 Method Of Arrival: Ambulatory lg3 01:22 Acuity: SRIRAM 3 lg3 Triage Assessment: 01:23 General: Appears in no apparent distress. uncomfortable, Behavior is calm, cooperative. lg3 Pain: Complains of pain in groin and left femoral area. EENT: No deficits noted. No signs and/or symptoms were reported regarding the EENT system. Neuro: No deficits noted. Gorman Agitation-Sedation Scale (RASS): 0 - Alert and Calm Level of Consciousness is awake, alert, obeys commands, Oriented to person, place, time, situation. Cardiovascular: No deficits noted. Denies chest pain, shortness of breath, Capillary refill < 3 seconds Clubbing of nail beds is absent JVD is absent Patient's skin is warm and dry. Respiratory: No deficits noted. Airway is patent Respiratory effort is even, unlabored, Respiratory pattern is regular, symmetrical. GI: No deficits noted. Abdomen is round non-distended, Reports lower abdominal pain, nausea. : No deficits noted. No signs and/or symptoms were reported regarding the genitourinary system. Derm: No deficits noted. No signs and/or symptoms reported regarding the dermatologic system. Skin is intact, is healthy with good turgor, Skin is dry, Skin is normal, Skin temperature is warm. Musculoskeletal: No deficits noted. No signs and/or symptoms reported regarding the musculoskeletal system. Circulation, motion, and sensation intact. Range of motion: intact in all extremities. 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 - Social history:: Smoking status: Patient reports the use of cigarette tobacco products, denies chronic smoking, but will smoke occasionally, Patient uses alcohol, occasionally. street drugs, marijuana. - Family history:: not pertinent. Screenin:58 [facility] ED Fall Risk Assessment (Adult) History of falling in the last 3 months, lg3 including since admission No falls in past 3 months (0 pts). Abuse screen: Denies threats or abuse. Denies injuries from another. Nutritional screening: No deficits noted. Tuberculosis screening: No symptoms or risk factors identified. Assessment: 01:22 General: see triage assessment. lg3 03:23 Reassessment: Patient and/or family updated on plan of care and expected duration. Pain vc1 level reassessed. Patient is alert, oriented x 3, equal unlabored respirations, skin warm/dry/pink. Patient states feeling better. Patient states symptoms have improved. Vital Signs: 01:22 BP 157 / 89; Pulse 68; Resp 17 S; Temp 98.9(O); Pulse Ox 100% on R/A; Weight 72.57 kg lg3 (R); Height 4 ft. 11 in. (R); 02:15 BP 138 / 105; Pulse 65; Resp 17 S; Pulse Ox 100% on R/A; lg3 03:15 BP 130 / 84; Pulse 52; Resp 17; Pulse Ox 100% ; vc1 01:22 Body Mass Index 32.32 (72.57 kg, 149.86 cm) lg3 ED Course: 01:05 Patient arrived in ED. mr 01:08 Sorin Escalante MD is Attending Physician. sp4 01:20 Amelia Alcantar, JESSICA is Primary Nurse. lg3 01:23 Triage completed. lg3 01:23 Arm band placed on right wrist. lg3 01:33 Radiology exam delayed due to lab results not completed at this time. (BUN/Creatinine) nj test not completed at this time. IV insertion attempt and/or patient not having appropriate IV at this time. 01:42 Inserted saline lock: 20 gauge in right antecubital area, using aseptic technique. rv1 Blood collected. 01:43 CRP Sent. rv1 01:43 CBC with Diff Sent. rv1 01:43 CMP Sent. rv1 01:43 Lipase Sent. rv1 01:43 Test, Urine Sent. rv1 01:43 Urinalysis W/Microscopic Sent. rv1 01:58 Patient has correct armband on for positive identification. Bed in low position. Call lg3 light in reach. Side rails up X 1. Client placed on continuous cardiac and pulse oximetry monitoring. NIBP monitoring applied. supervisor shipping on. Door closed. Noise minimized. Warm blanket given. 01:58 Patient maintains SpO2 saturation greater than 95% on room air. lg3 02:12 Transvaginal Study Probe In Process Unspecified. EDMS 02:26 CT Abd/Pelvis - IV Contrast Only In Process Unspecified. EDMS 04:01 Zoie Xavier MD is Referral Physician. sp4 04:28 No provider procedures requiring assistance completed. IV discontinued, intact, vc1 bleeding controlled, No redness/swelling at site. Pressure dressing applied. Administered Medications: 02:14 Drug: NS 0.9% IV 1000 ml Route: IV; Rate: 1 bolus; Site: right antecubital; lg3 02:14 Drug: Ondansetron IVP 4 mg Route: IVP; Site: right antecubital; lg3 04:11 Follow up: Response: No adverse reaction; Marked relief of symptoms vc1 02:14 Drug: Dicyclomine PO 20 mg Route: PO; lg3 04:10 Follow up: Response: No adverse reaction; Marked relief of symptoms vc1 02:15 Drug: TORadol - Ketorolac IVP 30 mg Route: IVP; Site: right antecubital; lg3 04:11 Follow up: Response: No adverse reaction; Marked relief of symptoms vc1 04:10 Drug: Ibuprofen PO 800 mg Route: PO; vc1 04:10 Follow up: Response: Medication administered at discharge. vc1 04:10 Drug: Promethazine PO 25 mg Route: PO; vc1 04:10 Follow up: Response: Medication administered at discharge. vc1 Medication: 03:23 VIS not applicable for this client. vc1 Outcome: 04:02 Discharge ordered by . sp4 04:28 Discharged to home ambulatory. vc1 04:28 Condition: good 04:28 Discharge instructions given to patient, Instructed on discharge instructions, follow up and referral plans. medication usage, Demonstrated understanding of instructions, follow-up care, medications, Prescriptions given X 3. 04:28 Patient left the ED. vc1 Signatures: Dispatcher [employer] EDMS Ramin, Mayra mr Wallace, Amelia Souza RN RN lg3 Dara Atwood RN RN vc1 Gayle Christianson rv1 Sorin Escalante MD MD sp4 Corrections: (The following items were deleted from the chart) 01:59 01:59 General: see triage assessment. lg3 lg3
[2023-05-07] MEDS ORDERED: PROMETHAZINE 25 MG TABLET ONE (04:19)
[2023-05-07] MEDS ORDERED: IBUPROFEN 400 MG TAB ONE (04:19)
[2023-05-07 04:54] VITALS: TEMP 98.9; O2SAT 100
[2023-05-07 05:01] VITALS: BP 130/84
--- NOTE | 2023-05-07 11:36 | RAD REPORT ---
EXAM DESCRIPTION: CT - Abdomen Pelvis W Contrast - 05/07/2023 5:27 am CLINICAL HISTORY: 32 years Female left lower abd pain, abd distention TECHNIQUE: Axial CT imaging of the abdomen and pelvis was performed following the administration of intravenous contrast.. Oral contrast was not administered. Sagittal and coronal reconstructed image s were then performed. The CT study is performed according to ALARA (as low as reasonably achievabl e) or ALARA/IMAGE GENTLY, with automatic adjustment of mA and/or kV according to patient size. Performed on: 05/07/2023 at 2:23 AM. COMPARISON: No prior studies were available for comparison. FINDINGS: Lung bases: The lung bases are clear. Liver: The liver is normal in size and configuration. No focal hepatic abnormalities are identified. Liver attenuation is within normal limits. The portal veins are patent. Spleen: The spleen is normal in size, configuration and attenuation. Gallbladder and bile duct: The gallbladder is well distended and unremarkable. There is no biliary ductal dilatation. Pancreas: The pancreas is grossly normal in size and configuration. Adrenal Glands: The adrenal glands are normal in size and configuration. Kidneys: The kidneys are normal in size and configuration. There is no evidence of hydronephrosis. Th ere is no evidence of nephrolithiasis. No definite solid or cystic renal mass lesions are identified. Stomach: The stomach is grossly normal. There is no definite hiatal hernia. Bowel: The bowel gas pattern is non specific and non obstructive. Appendix: The appendix is normal. Free air: There is no evidence of free air. Free fluid: There is no evidence of free fluid. Vasculature: The aorta is normal in caliber and contour. The inferior vena cava is grossly unremarkab le. Lymphadenopathy: No pathologic lymphadenopathy is identified. Bladder: The bladder is well distended and smooth in contour. Reproductive: The uterus is grossly within normal limits. There are bilateral fallopian tube ligation clips. Bones: No acute osseous abnormalities are identified. Soft tissues: No acute soft tissue abnormalities are identified. IMPRESSION: No evidence of acute intra-abdominal or intrapelvic pathology. Electronically signed by: Zo Garcia DO 05/07/2023 2:45 AM CDT Due to temporary technical issues with the PACS/Fluency reporting system, reports are being signed by the in house radiologists without review as a courtesy to insure prompt reporting. The interpreting radiologist is fully responsible for the content of the report.
--- NOTE | 2023-05-07 16:21 | RAD REPORT ---
EXAM DESCRIPTION: US - Transvaginal Study Probe - 05/07/2023 2:10 am CLINICAL HISTORY: 32 years Female pelvic pain , left, LMP: 05/02/2023 TECHNIQUE: Ultrasound imaging of the pelvis was performed endovaginally on 05/07/2023 at 1: 41 AM. COMPARISON: None FINDINGS: The uterus is normal in size, shape and echogenicity and measures 8.8 x 4.3 x 5.3 cm. Th e endometrial complex measures 0.3 cm in thickness. There is no endometrial fluid. The region of th e cervix is unremarkable. The right ovary measures 3.1 x 1.8 x 2.4 cm. The right ovary is grossly normal in appearance. Dop pler imaging demonstrates normal spectral and color Doppler flow. The left ovary measures 3.3 x 2.0 x 1.9 cm. The left ovary is grossly normal in appearance. Doppl er imaging demonstrates normal spectral waveforms and color Doppler flow. There is trace free fluid in the pelvis. IMPRESSION: 1. Grossly normal sonographic evaluation of the uterus and ovaries. 2. Trace free fluid in the pelvis. Electronically signed by: Zo Garcia DO 05/07/2023 2:25 AM CDT Due to temporary technical issues with the PACS/Fluency reporting system, reports are being signed by the in house radiologists without review as a courtesy to insure prompt reporting. The interpreting radiologist is fully responsible for the content of the report.
== END 2023-05-07 04:28 | disposition home or self-care (01) ==
LOC: ER 01:02
DX: R10.2 Pelvic and perineal pain (principal); R10.32 Left lower quadrant pain
CPT/HCPCS: 36415; 74177; 76830; 80053; 81001; 81025; 83690; 85025; 86140; 96374; 96375; 99285; J2405; J7030; Q0169; Q9967

== ENCOUNTER 2024-08-01 09:11 | Emergency (ER) | payer BC, SELFPAY ==
[2024-08-01] MEDS ORDERED: AZITHROMYCIN 250 MG TAB ONE (09:44)
[2024-08-01] MEDS ORDERED: LEVALBUTEROL 1.25 MG/3 ML NEB ONE (09:44)
[2024-08-01] MEDS ORDERED: BENZONATATE 100 MG CAP PO ONE (09:44)
[2024-08-01 10:06] LABS: SARS-CoV-2 Antigen CONTROL BLUE LINE VIS/BG OK; SARS-CoV-2 Antigen Rapid Res Negative (Negative)
--- NOTE | 2024-08-01 10:44 | ER ---
Nurse's Notes [facility] [place] Name: Veronika Caro Age: 34 yrs Sex: Female : 1990 Arrival Date: 08/01/2024 Time: 09:11 Bed 6 Private MD: Diagnosis: Acute upper respiratory infection, unspecified;Cough Presentation: 08/01 09:22 Chief complaint: Patient states: cough for a few days , SOB since yesterday , + chills, iw feels hot , has throat tightness and chest tightness. Coronavirus screen: Client presents with at least one sign or symptom that may indicate coronavirus-19. Ebola Screen: No symptoms or risks identified at this time. Initial Sepsis Screen: Does the patient meet any 2 criteria? No. Patient's initial sepsis screen is negative. Does the patient have a suspected source of infection? No. Patient's initial sepsis screen is negative. Risk Assessment: Do you want to hurt yourself or someone else? Patient reports no desire to harm self or others. Onset of symptoms was July 29, 2024. 09:22 Method Of Arrival: Ambulatory iw 09:22 Acuity: SRIRAM 3 iw Triage Assessment: 09:30 Respiratory: Onset: The symptoms/episode began/occurred gradually, the patient has mild ap3 shortness of breath. 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 - Infectious Disease History:: Denies. - Social history:: Smoking status: Patient reports the use of cigarette tobacco products, denies chronic smoking, but will smoke occasionally. Screenin:29 [facility] ED Fall Risk Assessment (Adult) History of falling in the last 3 months, ap3 including since admission No falls in past 3 months (0 pts) Confusion or Disorientation No (0 pts) Intoxicated or Sedated No (0 pts) Impaired Gait No (0 pts) Mobility Assist Device Used No (0 pt) Altered Elimination No (0 pt) Score/Fall Risk Level 0 - 2 = Low Risk Oriented to surroundings, Maintained a safe environment, Educated pt \T\ family on fall prevention, incl call for assistance when getting out of bed, Assessed \T\ reinforced patient's understanding of fall precautions, Hourly rounding (assess needs \T\ fall precautionary measures) done, Used ambulatory aids as needed (educated on \T\ assisted with), Used gait belt as appropriate. Abuse screen: Denies threats or abuse. Nutritional screening: No deficits noted. Tuberculosis screening: No symptoms or risk factors identified. Assessment: 09:28 General: Appears in no apparent distress. Behavior is calm, cooperative, appropriate ap3 for age. Pain: Denies pain. Neuro: Level of Consciousness is awake, alert, obeys commands, Oriented to person, place, time, situation, Appropriate for age. Cardiovascular: Reports shortness of breath, Patient's skin is warm and dry. Respiratory: Reports shortness of breath cough that is Airway is patent Respiratory effort is even, unlabored. 09:50 General: Appears in no apparent distress. comfortable, well groomed, well developed, kc6 Behavior is calm, cooperative, appropriate for age. Pain: Complains of pain in chest. Neuro: Level of Consciousness is awake, alert, obeys commands, Oriented to person, place, time, situation, Appropriate for age. Cardiovascular: Reports chest pain, shortness of breath, Capillary refill < 3 seconds Rhythm is sinus rhythm. Respiratory: Reports shortness of breath on exertion cough that is non-productive, dry, Breath sounds with wheezes bilaterally. GI: No signs and/or symptoms were reported involving the gastrointestinal system. : No signs and/or symptoms were reported regarding the genitourinary system. EENT: No signs and/or symptoms were reported regarding the EENT system. Derm: No signs and/or symptoms reported regarding the dermatologic system. Skin is intact, is healthy with good turgor, Skin is pink, warm \T\ dry. Musculoskeletal: No signs and/or symptoms reported regarding the musculoskeletal system. Circulation, motion, and sensation intact. Capillary refill < 3 seconds, Range of motion: intact in all extremities. 11:18 Reassessment: Patient appears in no apparent distress at this time. No changes from kc6 previously documented assessment. Patient and/or family updated on plan of care and expected duration. Pain level reassessed. Patient is alert, oriented x 3, equal unlabored respirations, skin warm/dry/pink. Vital Signs: 09:22 Pulse 92; Resp 18; Pulse Ox 99% on R/A; Weight 77.11 kg; Height 4 ft. 11 in. ; iw 09:50 BP 127 / 88; Pulse 73; Resp 16 S; Pulse Ox 99% on R/A; kc6 09:22 Body Mass Index 34.34 (77.11 kg, 149.86 cm) ED Course: 09:14 Patient arrived in ED. im 09:16 Adolfo Dunbar MD is Attending Physician. tim 09:22 Brianna Rehman, RN is Primary Nurse. kc6 09:23 Triage completed. iw 09:23 Arm band placed on. iw 09:28 EKG done, by ED staff, reviewed by Adolfo Dunbar MD. Patient maintains SpO2 saturation ap3 greater than 95% on room air. 09:29 Patient has correct armband on for positive identification. Bed in low position. Call ap3 light in reach. Side rails up X 1. Client placed on continuous cardiac and pulse oximetry monitoring. NIBP monitoring applied. stove fitter on. Pulse ox on. NIBP on. 09:29 No provider procedures requiring assistance completed. ap3 10:25 Chest Pa And Lat (2 Views) XRAY In Process Unspecified. EDNE 11:19 Provided Education on: discharge instructions. ap3 11:19 Patient did not have IV access during this emergency room visit. ap3 Administered Medications: 09:49 Drug: AZITHromycin PO 500 mg PO once Route: PO; kc6 11:18 Follow up: Response: No adverse reaction kc6 09:49 Drug: Tessalon Perle PO 200 mg PO once Route: PO; kc6 11:18 Follow up: Response: No adverse reaction kc6 09:50 Drug: Levalbuterol Inhalation 1.25 mg Inhalation once Route: Inhalation; kc6 11:18 Follow up: Response: No adverse reaction kc6 Medication: 09:30 VIS not applicable for this client. ap3 Outcome: 10:44 Discharge ordered by . tim 11:19 Discharged to home ambulatory, ap3 11:19 Condition: good 11:19 Discharge instructions given to patient, Instructed on discharge instructions, follow up and referral plans. medication usage, Demonstrated understanding of instructions, follow-up care, medications, Prescriptions given X 3, 11:20 Patient left the ED. ap3 Signatures: Dispatcher [employer] EDAdolfo Walden MD MD tim Avelino, Awa, RN RN iw Vijaya Livingston, RN RN ap3 Brianna Rehman, RN RN kc6 Glenda Mullins
--- NOTE | 2024-08-01 10:45 | EDPHYS ---
Physician Documentation [facility] [place] monett Name: Veronika White Age: 34 yrs Sex: Female : 1990 Arrival Date: 08/01/2024 Time: 09:11 Bed 6 Private MD: ED Physician Adolfo Dunbar HPI: 08/01 09:38 This 34 yrs old Black Female presents to ER via Ambulatory with complaints of Shortness tim Of Breath, Cough, Chest Tightness. OCULARIST: : LMP 06/29/2024, unknown iw Historical: - Allergies: : No Known Allergies; iw - Home Meds: : None [Active]; iw - PMHx: : None; iw - PSHx: : None; iw - Immunization history:: Adult Immunizations up to date. - Infectious Disease History:: Denies. - Social history:: Smoking status: Patient reports the use of cigarette tobacco products, denies chronic smoking, but will smoke occasionally. ROS: 09:38 Constitutional: Negative for fever, chills, and weight loss, Eyes: Negative for injury, tim pain, redness, and discharge, ENT: Negative for injury, pain, and discharge, Neck: Negative for injury, pain, and swelling, Cardiovascular: Negative for chest pain, palpitations, and edema, Abdomen/GI: Negative for abdominal pain, nausea, vomiting, diarrhea, and constipation, Back: Negative for injury and pain, : Negative for injury, bleeding, discharge, and swelling, MS/Extremity: Negative for injury and deformity, Skin: Negative for injury, rash, and discoloration, Neuro: Negative for headache, weakness, numbness, tingling, and seizure, Psych: Negative for depression, anxiety, suicide ideation, homicidal ideation, and hallucinations, Allergy/Immunology: Negative for hives, rash, and allergies, Endocrine: Negative for neck swelling, polydipsia, polyuria, polyphagia, and marked weight changes, Hematologic/Lymphatic: Negative for swollen nodes, abnormal bleeding, and unusual bruising, 09:38 Respiratory: Positive for cough, shortness of breath, Exam: 09:38 Constitutional: This is a well developed, well nourished patient who is awake, alert, tim and in no acute distress. Head/Face: Normocephalic, atraumatic. Eyes: Pupils equal round and reactive to light, extra-ocular motions intact. Lids and lashes normal. Conjunctiva and sclera are non-icteric and not injected. Cornea within normal limits. Periorbital areas with no swelling, redness, or edema. ENT: Nares patent. No nasal discharge, no septal abnormalities noted. Tympanic membranes are normal and external auditory canals are clear. Oropharynx with no redness, swelling, or masses, exudates, or evidence of obstruction, uvula midline. Mucous membranes moist. Neck: Trachea midline, no thyromegaly or masses palpated, and no cervical lymphadenopathy. Supple, full range of motion without nuchal rigidity, or vertebral point tenderness. No Meningismus. Chest/axilla: Normal chest wall appearance and motion. Nontender with no deformity. No lesions are appreciated. Cardiovascular: Regular rate and rhythm with a normal S1 and S2. No gallops, murmurs, or rubs. Normal PMI, no JVD. No pulse deficits. Abdomen/GI: Soft, non-tender, with normal bowel sounds. No distension or tympany. No guarding or rebound. No evidence of tenderness throughout. Back: No spinal tenderness. No costovertebral tenderness. Full range of motion. Skin: Warm, dry with normal turgor. Normal color with no rashes, no lesions, and no evidence of cellulitis. MS/ Extremity: Pulses equal, no cyanosis. Neurovascular intact. Full, normal range of motion. Neuro: Awake and alert, GCS 15, oriented to person, place, time, and situation. Cranial nerves II-XII grossly intact. Motor strength 5/5 in all extremities. Sensory grossly intact. Cerebellar exam normal. Normal gait. Psych: Awake, alert, with orientation to person, place and time. Behavior, mood, and affect are within normal limits. 09:38 Respiratory: the patient does not display signs of respiratory distress, Respirations: no acute changes, Breath sounds: rhonchi, that are mild, are scattered, Vital Signs: 09:22 Pulse 92; Resp 18; Pulse Ox 99% on R/A; Weight 77.11 kg; Height 4 ft. 11 in. ; iw 09:50 BP 127 / 88; Pulse 73; Resp 16 S; Pulse Ox 99% on R/A; kc6 09:22 Body Mass Index 34.34 (77.11 kg, 149.86 cm) iw MDM: 09:16 Medical Screening Exam initiated [facility] 09:43 Differential diagnosis: Anemia asthma, Bronchitis pneumonia, reactive airway disease, tim Unstable Angina. Antibiotic administration: The patient is discharged and will get outpatient antibiotics, Zithromax. Immunization status:. Data reviewed: vital signs, nurses notes, lab test result(s), radiologic studies, plain films. Consideration of Admission/Observation Escalation of care including admission/observation considered. I considered the following discharge prescriptions or medication management in the emergency department Medications were administered in the Emergency Department. See MAR. Test considered but Not performed: Labs: no cbc , no comp met. Counseling: I had a detailed discussion with the patient and/or guardian regarding the historical points, exam findings, and any diagnostic results supporting the discharge/admit diagnosis, lab results, radiology results, the need for outpatient follow up, for definitive care, a family practitioner. 08/01 09:37 Order name: Flu; Complete Time: 10:44 [facility] 08/01 09:37 Order name: SARS RAPID; Complete Time: 10:44 [facility] 08/01 09:37 Order name: Chest Pa And Lat (2 Views) XRAY; Complete Time: 11:06 [facility] 08/01 09:38 Order name: EKG; Complete Time: 09:38 [facility] 08/01 09:38 Order name: EKG - Nurse/Tech; Complete Time: 09:41 [facility] Administered Medications: 09:49 Drug: AZITHromycin PO 500 mg PO once Route: PO; kc6 11:18 Follow up: Response: No adverse reaction kc6 09:49 Drug: Tessalon Perle PO 200 mg PO once Route: PO; kc6 11:18 Follow up: Response: No adverse reaction kc6 09:50 Drug: Levalbuterol Inhalation 1.25 mg Inhalation once Route: Inhalation; kc6 11:18 Follow up: Response: No adverse reaction kc6 Disposition Summary: 08/01/24 10:44 Discharge Ordered Notes: Location: Home [facility] Problem: new tim Symptoms: have improved tim Condition: Stable tim Diagnosis - Acute upper respiratory infection, unspecified tim - Cough tim Followup: tim - With: Private Physician - When: 2 - 3 days - Reason: Recheck today's complaints, Continuance of care, Re-evaluation by your physician Discharge Instructions: - Discharge Summary Sheet tim - Upper Respiratory Infection, Adult tim - Cool Mist Vaporizer tim - Upper Respiratory Infection, Adult, [id number] tim - Cough, Adult, [id number] [facility] - Cough, Adult [facility] Forms: - Medication Reconciliation Form [facility] - Antibiotic Education tim - Prescription Opioid Use [facility] - Patient Portal Instructions [facility] - Leadership Thank You Letter [facility] Prescriptions: - Viola-D 12 Hour 60-120 mg Oral Tablet Sustained Release 12 hr - take 1 tablet ORAL route every 12 hours As needed; 20 tablet; Refills: 0, [facility] Product Selection Permitted - Tessalon Perles 100 mg Oral capsule - take 2 capsule ORAL route every 8 hours As needed; 30 capsule; Refills: 0, [facility] Product Selection Permitted - Zithromax Z-Deng 250 mg Oral Tablet - take 1 tablet ORAL route as directed for 5 days Day 1 - take two (2) tablets tim one time. Day 2, 3, 4 , 5 take one (1) tablet once daily.; 6 tablet; Refills: 0, Product Selection Permitted Signatures: Dispatcher [employer] Adolfo Garay MD MD cha Williams, Irene RN Brianna Lemos RN RN kc6
--- NOTE | 2024-08-01 10:52 | RAD REPORT ---
EXAMINATION: TWO VIEW CHEST XR CLINICAL INDICATION: COUGH TECHNIQUE: 2 views of the chest was performed. COMPARISON: No prior exam. FINDINGS: Mild bilateral peribronchial cuffing noted which can be seen in reactive airway disease or viral bron chitis. No focal consolidation to indicate pneumonia is seen. The heart is normal in size. No displaced fractures evident.
[2024-08-01 14:52] VITALS: O2SAT 99
[2024-08-01 14:53] VITALS: BP 127/88
--- NOTE | 2024-08-02 11:37 | EKG ---
Test Date: 2024-08-01 Test Time: 09:24:14 Life Science Technical Officer: ALP MEASUREMENT RESULTS: Intervals: Rate: 78 OH: 160 QRSD: 80 QT: 400 QTc: 456 Harris: P: 44 OH: 160 QRS: 37 T: 9 INTERPRETIVE STATEMENTS: Normal sinus rhythm Nonspecific T wave abnormality Abnormal ECG No previous ECG available for comparison Electronically Signed On 08-02-24 11:32:25 LEAD INJECTION MOLD TECHNICIAN by Willian Jack
== END 2024-08-01 11:20 | disposition home or self-care (01) ==
LOC: ER 09:11
DX: J06.9 Acute upper respiratory infection, unspecified (principal); Z11.52 Encounter for screening for COVID-19
CPT/HCPCS: 93005; 36415; 87804 ×2; 71046; 99285; 87811; J7614